=== PATIENT | male | born 1970 | race Hispanic/Latino ===

== ENCOUNTER 2017-11-19 00:42 | Inpatient (IN) | payer MEDICARE ==
[~2017-11-19] VITALS: Ht 180.3 cm; Wt 118.8 kg
[~2017-11-19 00:42] MED LIST: CLARATIN PO; DILT180C11 PO; INSU3INS5 SQ; METO25TA6 PO; TRAV5DRO OP
[2017-11-19] MEDS ORDERED: SODIUM CHLORIDE 0.9% 500ML 500 ML IV ONE (00:55)
[2017-11-19 01:30] LABS: ALBUMIN 3.2 g/dL (3.5-5.0); BILIRUBIN,TOTAL 0.7 mg/dL (0.2-1.0)
[2017-11-19 01:31] LABS: POTASSIUM 7.2 mmol/L (3.5-5.1)
[2017-11-19 01:32] LABS: CREATININE 8.2 mg/dL (0.5-1.5)
[2017-11-19 02:27] LABS: BASOPHILS % (AUTO) 0.5 % (0.0-5.0); EOSINOPHILS % (AUTO) 1.4 % (0.0-8.0); HEMATOCRIT 34.3 % (42-54); LYMPHOCYTES % (AUTO) 6.8 % (21.0-51.0); MEAN CORPUSCULAR HGB CONC 32.4 g/dL (32.0-36.0); MEAN CORPUSCULAR VOLUME 98.9 fL (79-99); MONOCYTES % (AUTO) 4.4 % (3.0-13.0); NEUTROPHILS % (AUTO) 86.9 % (40.0-77.0); NUCLEATED RED BLOOD CELLS 0.2 % (0.0-0.19); PLATELET COUNT (AUTO) 191 K/uL (130-400); RED BLOOD CELL COUNT(AUTO) 3.47 MIL/uL (4.50-6.20); RED CELL DISTRIBUTION WIDTH 17.3 % (11.0-15.5); WHITE BLOOD COUNT (AUTO) 10.3 K/uL (4.8-10.8)
[2017-11-19 02:36] LABS: INR 1.09 (0.85-1.15); PARTIAL THROMBOPLASTIN TIME 22.7 SEC (26.3-35.5); PROTHROMBIN TIME 11.4 SEC (9.6-11.6)
[2017-11-19 02:41] LABS: ALBUMIN 3.1 g/dL (3.5-5.0); BILIRUBIN,TOTAL 0.6 mg/dL (0.2-1.0)
[2017-11-19 02:45] LABS: CREATININE 8.1 mg/dL (0.5-1.5); POTASSIUM 7.1 mmol/L (3.5-5.1)
[2017-11-19] MEDS ORDERED: SODIUM BICARB 50MEQ 50ML VIAL ONE (02:47)
[2017-11-19] MEDS ORDERED: CALCIUM GLUCONATE 1 GM/10 ML VIAL IV ONE (02:47)
[2017-11-19] MEDS ORDERED: SODIUM POLYSTYRENE SULFONATE 15 GM/60 ML ML ONE (02:47)
[2017-11-19] MEDS ORDERED: DEXTROSE 50%-WATER 50 ML DISP.SYRIN IV ONE (02:48)
[2017-11-19] MEDS ORDERED: INSULIN HUMULIN R 100 UNIT/ML 3ML ONE ×3 (02:49→13:07)
[2017-11-19 02:54] LABS: B-TYPE NATRIURETIC PEPTIDE 342 pg/mL (0-100)
[2017-11-19] MEDS ORDERED: ONDANSETRON HCL 4 MG/2 ML VIAL ONE (03:59)
[2017-11-19 07:46] LABS: BASOPHILS % (AUTO) 0.9 % (0.0-5.0); EOSINOPHILS % (AUTO) 0.7 % (0.0-8.0); HEMATOCRIT 31.1 % (42-54); LYMPHOCYTES % (AUTO) 5.4 % (21.0-51.0); MEAN CORPUSCULAR HEMOGLOBIN 31.9 pg (27.0-33.0); MEAN CORPUSCULAR HGB CONC 33.2 g/dL (32.0-36.0); MEAN CORPUSCULAR VOLUME 96.1 fL (79-99); MONOCYTES % (AUTO) 7.7 % (3.0-13.0); NEUTROPHILS % (AUTO) 85.3 % (40.0-77.0); PLATELET COUNT (AUTO) 189 K/uL (130-400); RED BLOOD CELL COUNT(AUTO) 3.24 MIL/uL (4.50-6.20); RED CELL DISTRIBUTION WIDTH 16.8 % (11.0-15.5); WHITE BLOOD COUNT (AUTO) 10.4 K/uL (4.8-10.8)
[2017-11-19 08:21] LABS: POTASSIUM 6.4 mmol/L (3.5-5.1)
[2017-11-19 08:22] LABS: CREATININE 8.8 mg/dL (0.5-1.5)
[2017-11-19] MEDS ORDERED: SODIUM CHLORIDE 0.9% 1000ML 1,000 ML IV ONE (10:59)
[2017-11-19] MEDS ORDERED: MAG HYDROX/AL HYDROX/SIMETH ES 30 ML SUSP UDCUP PO PRN (11:00)
[2017-11-19] MEDS ORDERED: MORPHINE SULFATE 4 MG/1ML SYG IV PRN (11:00)
[2017-11-19] MEDS ORDERED: NITROGLYCERIN 0.4 MG SL TAB SL PRN (11:00)
[2017-11-19] MEDS ORDERED: MORPHINE SULFATE 2 MG/ML 1ML SYG IV PRN (11:00)
[2017-11-19] MEDS ORDERED: HYDRALAZINE HCL 20 MG/ML VIAL IV PRN (11:00)
[2017-11-19] MEDS ORDERED: ONDANSETRON HCL 4 MG/2 ML VIAL IV PRN (11:00)
[2017-11-19] MEDS ORDERED: ACETAMINOPHEN 325 MG TAB PO PRN ×2 (11:00)
[2017-11-19] MEDS ORDERED: GUAIFENESIN-DM 200/20 MG 10 ML PO PRN (11:00)
[2017-11-19] MEDS ORDERED: ACETAMINOPHEN-CODEINE 300/30MG TAB PO PRN ×2 (11:00)
[2017-11-19] MEDS ORDERED: LACTULOSE 20 GM/30 ML UDCUP PO PRN (11:00)
[2017-11-19] MEDS ORDERED: METOPROLOL TARTRATE 25 MG TAB ONE (12:06)
[2017-11-19] MEDS ORDERED: DILTIAZEM HCL 5 MG/ML 10 ML VIAL IV ONE (12:30)
[2017-11-19] MEDS ORDERED: DILTIAZEM HCL 120 MG CAP.SR.24H PO ONE (13:06)
[2017-11-19] MEDS ORDERED: METOPROLOL TARTRATE 1 MG/ML 5ML VIAL IV ONE ×2 (15:15→22:33)
[2017-11-19] MEDS ORDERED: INSU3INS5 SQ ×2 (17:20→17:21)
[2017-11-19 20:00] VITALS: BP 127/83
[2017-11-19] MEDS ORDERED: DILT240C94 PO (20:43)
[2017-11-19] MEDS ORDERED: METOPROLOL TARTRATE 25 MG TAB PO SCH (21:00)
[2017-11-19] MEDS ORDERED: METOPROLOL TARTRATE 1 MG/ML 5ML VIAL IV SCH (22:30)
[2017-11-19 23:50] VITALS: BP 127/79
[2017-11-20] VITALS (21 sets, daily range): BP systolic 110–165; BP diastolic 58–112
[2017-11-20] MEDS ORDERED: METOPROLOL TARTRATE 1 MG/ML 5ML VIAL IV SCH (06:00)
[2017-11-20 06:12] LABS: POTASSIUM 5.3 mmol/L (3.5-5.1)
[2017-11-20 06:16] LABS: CREATININE 9.3 mg/dL (0.5-1.5)
[2017-11-20] MEDS ORDERED: DILTIAZEM HCL 180 MG CAP.SR.24H PO SCH (09:00)
[2017-11-20] MEDS: METOPROLOL TARTRATE 25 MG TAB PO SCH ×2 (09:18→20:36)
[2017-11-20] MEDS: DILTIAZEM HCL 125 MG/25 ML 125 MG in SODIUM CHLORIDE 0.9% 100 ML IV SCH (10:02)
[2017-11-20] MEDS: HEPARIN SODIUM 5000UNIT/ML 1ML VIAL SQ SCH ×2 (10:59→20:37)
[2017-11-20] MEDS ORDERED: SODIUM CHLORIDE 0.9% 1000ML 1,000 ML IV ONE (11:08)
[2017-11-20] MEDS: DILTIAZEM HCL 60 MG TABLET PO SCH ×3 (11:53→23:18)
[2017-11-20] MEDS: INSULIN HUMULIN R 100 UNIT/ML 3ML SQ SCH ×3 (12:02→20:48)
[2017-11-20] MEDS ORDERED: ALBUMIN (HUMAN) 25% 100 ML IV PRN (13:00)
[2017-11-20] MEDS ORDERED: 0.9% SODIUM CHLORIDE 250 ML IV BAG IV PRN (13:00)
[2017-11-20] MEDS ORDERED: SODIUM CHLORIDE 0.9% 1000ML 1,000 ML IV PRN (13:00)
[2017-11-20] MEDS: EPOETIN ALFA 10,000 UNIT/ML VIAL SQ SCH (14:29)
[2017-11-20] MEDS: INSULIN HUMULIN 70/30 100 UNIT/ML 3ML SQ SCH (20:47)
[2017-11-21 03:05] VITALS: BP 118/58
[2017-11-21 04:19] LABS: HEMATOCRIT 33.3 % (42-54); MEAN CORPUSCULAR HEMOGLOBIN 32.3 pg (27.0-33.0); MEAN CORPUSCULAR HGB CONC 33.9 g/dL (32.0-36.0); MEAN CORPUSCULAR VOLUME 95.2 fL (79-99); PLATELET COUNT (AUTO) 236 K/uL (130-400); RED BLOOD CELL COUNT(AUTO) 3.49 MIL/uL (4.50-6.20); RED CELL DISTRIBUTION WIDTH 16.9 % (11.0-15.5); WHITE BLOOD COUNT (AUTO) 11.5 K/uL (4.8-10.8)
[2017-11-21 04:36] LABS: CREATININE 7.8 mg/dL (0.5-1.5); POTASSIUM 4.7 mmol/L (3.5-5.1)
[2017-11-21] MEDS: DILTIAZEM HCL 60 MG TABLET PO SCH ×3 (05:58→17:28)
[2017-11-21] MEDS: INSULIN HUMULIN R 100 UNIT/ML 3ML SQ SCH ×4 (06:03→21:20)
[2017-11-21 07:00] VITALS: BP 142/77
[2017-11-21] MEDS: METOPROLOL TARTRATE 25 MG TAB PO SCH ×2 (09:12→21:17)
[2017-11-21] MEDS: HEPARIN SODIUM 5000UNIT/ML 1ML VIAL SQ SCH ×2 (09:20→21:22)
[2017-11-21] MEDS: INSULIN HUMULIN 70/30 100 UNIT/ML 3ML SQ SCH ×2 (09:21→21:21)
[2017-11-21 11:44] VITALS: BP 173/93
[2017-11-21] MEDS ORDERED: DILTIAZEM HCL 5 MG/ML 5 ML VIAL IVP ONE (13:30)
[2017-11-21] MEDS: DILTIAZEM HCL 125 MG/25 ML 125 MG in SODIUM CHLORIDE 0.9% 100 ML IV SCH (14:25)
[2017-11-21] MEDS: EPOETIN ALFA 10,000 UNIT/ML VIAL SQ SCH (15:00)
[2017-11-21 16:00] VITALS: BP 137/86
[2017-11-21 19:34] VITALS: BP 116/60
[2017-11-21 23:41] VITALS: BP 130/59
[2017-11-22] MEDS: DILTIAZEM HCL 60 MG TABLET PO SCH ×3 (00:33→11:32)
[2017-11-22 03:35] VITALS: BP 129/72
[2017-11-22 04:02] LABS: POTASSIUM 4.7 mmol/L (3.5-5.1)
[2017-11-22 04:07] LABS: CREATININE 10.3 mg/dL (0.5-1.5)
[2017-11-22] MEDS: INSULIN HUMULIN R 100 UNIT/ML 3ML SQ SCH ×4 (06:06→20:59)
[2017-11-22 07:00] VITALS: BP 166/82
[2017-11-22] MEDS: INSULIN HUMULIN 70/30 100 UNIT/ML 3ML SQ SCH ×2 (07:19→20:58)
[2017-11-22] MEDS: METOPROLOL TARTRATE 25 MG TAB PO SCH ×2 (09:50→20:55)
[2017-11-22] MEDS: HEPARIN SODIUM 5000UNIT/ML 1ML VIAL SQ SCH ×2 (09:52→20:57)
[2017-11-22 11:00] VITALS: BP 119/66
[2017-11-22] MEDS ORDERED: PHARMACY COMMUNICATION MISC SCH (12:00)
[2017-11-22] MEDS: EPOETIN ALFA 10,000 UNIT/ML VIAL SQ SCH (12:47)
[2017-11-22] MEDS ORDERED: DILTIAZEM HCL 120 MG CAP.SR.24H PO SCH (13:00)
[2017-11-22 16:00] VITALS: BP 114/63
[2017-11-22 19:25] VITALS: BP 117/64
[2017-11-22 23:43] VITALS: BP 138/71
[2017-11-23 03:37] VITALS: BP 122/68
[2017-11-23 04:58] LABS: POTASSIUM 5.2 mmol/L (3.5-5.1)
[2017-11-23 05:04] LABS: CREATININE 8.7 mg/dL (0.5-1.5)
[2017-11-23] MEDS: INSULIN HUMULIN R 100 UNIT/ML 3ML SQ SCH ×2 (05:48→11:31)
[2017-11-23] MEDS: INSULIN HUMULIN 70/30 100 UNIT/ML 3ML SQ SCH (06:10)
[2017-11-23 07:00] VITALS: BP 141/73
[2017-11-23] MEDS ORDERED: DILTIAZEM HCL 120 MG CAP.SR.24H PO SCH (09:00)
[2017-11-23] MEDS: METOPROLOL TARTRATE 25 MG TAB PO SCH (09:38)
[2017-11-23] MEDS: HEPARIN SODIUM 5000UNIT/ML 1ML VIAL SQ SCH (09:38)
[2017-11-23 11:00] VITALS: BP 134/76
== END 2017-11-23 13:25 | disposition home or self-care (01) | DRG 308 ==
LOC: EDH 00:42 → EDHIP 03:30 → OBSVTOIN 03:30 → 3BH 19:54 → 2CH 11-20 09:42
PROVIDERS: ADMIT Internal Medicine; ATTEND Internal Medicine
PROC: 5A1D70Z Performance of Urinary Filtration, Intermittent, Less than 6 Hours Per Day (ICD-10-PCS; principal; 2017-11-19)
PROC: 5A1D70Z Performance of Urinary Filtration, Intermittent, Less than 6 Hours Per Day (ICD-10-PCS; 2017-11-20)
PROC: 5A1D70Z Performance of Urinary Filtration, Intermittent, Less than 6 Hours Per Day (ICD-10-PCS; 2017-11-22)
DX: I48.91 Unspecified atrial fibrillation (principal); N18.6 End stage renal disease; E11.22 Type 2 diabetes mellitus with diabetic chronic kidney disease; E11.51 Type 2 diabetes mellitus with diabetic peripheral angiopathy without gangrene; I12.0 Hypertensive chronic kidney disease with stage 5 chronic kidney disease or end stage renal disease; E87.5 Hyperkalemia; E11.65 Type 2 diabetes mellitus with hyperglycemia; I48.92 Unspecified atrial flutter; D64.9 Anemia, unspecified; E78.5 Hyperlipidemia, unspecified; E87.70 Fluid overload, unspecified; H54.7 Unspecified visual loss; Z88.8 Allergy status to other drugs, medicaments and biological substances; Z90.49 Acquired absence of other specified parts of digestive tract; Z99.2 Dependence on renal dialysis; Z83.3 Family history of diabetes mellitus; Z82.49 Family history of ischemic heart disease and other diseases of the circulatory system
CPT/HCPCS: 36415; 71045; 80048; 80053; 82948; 83880; 84484; 85025; 85027; 85610; 85730; 90935; 93005; 94640; 99291; G0378; J0360; J0610; J0885; J1644; J1815; J2405; J3490; J7030; J7040; J7070

== ENCOUNTER 2020-03-23 18:05 | Inpatient (IN) | payer MEDICARE ==
[~2020-03-23] VITALS: Ht 175.3 cm; Wt 115.1 kg
[~2020-03-23 18:05] MED LIST changes: -DILT180C11 PO; +GUAI-904 PO; +LEVO500T2 PO; +METO-391 PO; -METO25TA6 PO; +TIMO5DRO27 OS; -TRAV5DRO OP
[2020-03-23 19:18] LABS: BASOPHILS % (AUTO) 0.2 % (0.0-5.0); HEMATOCRIT 28.4 % (42-54); LYMPHOCYTES % (AUTO) 7.5 % (21.0-51.0); MEAN CORPUSCULAR HEMOGLOBIN 30.2 pg (27.0-33.0); MEAN CORPUSCULAR HGB CONC 32.7 g/dL (32.0-36.0); MEAN CORPUSCULAR VOLUME 92.2 fL (79-99); MONOCYTES % (AUTO) 5.9 % (3.0-13.0); NEUTROPHILS % (AUTO) 85.9 % (40.0-77.0); PLATELET COUNT (AUTO) 140 K/uL (130-400); RED BLOOD CELL COUNT(AUTO) 3.08 MIL/uL (4.50-6.20); RED CELL DISTRIBUTION WIDTH 15.7 % (11.0-15.5); WHITE BLOOD COUNT (AUTO) 6.1 K/uL (4.8-10.8)
[2020-03-23] MEDS ORDERED: CEFTRIAXONE SODIUM 500 MG VIAL ONE (19:31)
[2020-03-23] MEDS ORDERED: ACETAMINOPHEN EXTRA STRENGTH 500 MG TABLET ONE (19:32)
[2020-03-23] MEDS ORDERED: AZITHROMYCIN 250 MG TABLET PO ONE (19:32)
[2020-03-23 19:39] LABS: CREATININE 6.1 mg/dL (0.5-1.5); POTASSIUM 4.5 mmol/L (3.5-5.1)
[2020-03-23 19:46] LABS: ALBUMIN 2.6 g/dL (3.5-5.0); BILIRUBIN,TOTAL 2.1 mg/dL (0.2-1.0)
[2020-03-23 19:58] LABS: TOTAL PROTEIN, SERUM 8.6 g/dL (6.0-8.3)
[2020-03-23] MEDS ORDERED: HYDROXYCHLOROQUINE SULFATE 200 MG TAB PO ONE (21:00)
[2020-03-23] MEDS ORDERED: ONDANSETRON HCL 4 MG/2 ML VIAL IV PRN (21:15)
[2020-03-23] MEDS ORDERED: GLUCAGON 1MG KIT 1 MG ML IM PRN (21:30)
[2020-03-23] MEDS: ZOSYN 3.375GM+NS 50ML 50 ML IV SCH (21:30)
[2020-03-23] MEDS ORDERED: DEXTROSE 50%-WATER 50 ML DISP.SYRIN IV PRN (21:30)
[2020-03-23] MEDS ORDERED: VANCOMYCIN PROTOCOL PER PHARMACY IV SCH (21:30)
[2020-03-23] MEDS ORDERED: HYDRALAZINE HCL 20 MG/ML VIAL IV PRN (22:00)
[2020-03-23] MEDS ORDERED: VANCOMYCIN 1GM+NS 250ML 500 ML IV ONE (22:10)
[2020-03-23] MEDS ORDERED: HYDRALAZINE HCL 20 MG/ML VIAL ONE (22:12)
[2020-03-24] VITALS (7 sets, daily range): BP systolic 115–187; BP diastolic 51–101
[2020-03-24 04:27] LABS: BASOPHILS % (AUTO) 0.2 % (0.0-5.0); EOSINOPHILS % (AUTO) 0.2 % (0.0-8.0); HEMATOCRIT 28.7 % (42-54); LYMPHOCYTES % (AUTO) 8.1 % (21.0-51.0); MEAN CORPUSCULAR HGB CONC 32.4 g/dL (32.0-36.0); MEAN CORPUSCULAR VOLUME 92.6 fL (79-99); MONOCYTES % (AUTO) 5.2 % (3.0-13.0); NEUTROPHILS % (AUTO) 85.7 % (40.0-77.0); PLATELET COUNT (AUTO) 129 K/uL (130-400); RED CELL DISTRIBUTION WIDTH 15.4 % (11.0-15.5); WHITE BLOOD COUNT (AUTO) 4.8 K/uL (4.8-10.8)
[2020-03-24] MEDS ORDERED: BACL5TAB PO (04:52)
[2020-03-24] MEDS ORDERED: CETI10TA57 PO (04:52)
[2020-03-24] MEDS ORDERED: MONT10TA26 PO (04:52)
[2020-03-24] MEDS ORDERED: CLON0.1T2 PO (04:52)
[2020-03-24] MEDS ORDERED: FOLI1TAB85 PO (04:52)
[2020-03-24 05:01] LABS: ALBUMIN 2.4 g/dL (3.5-5.0); BILIRUBIN,DIRECT 1.4 mg/dL (0.0-0.3); BILIRUBIN,TOTAL 2.1 mg/dL (0.2-1.0); CREATININE 6.4 mg/dL (0.5-1.5); POTASSIUM 4.4 mmol/L (3.5-5.1); TOTAL PROTEIN, SERUM 8.4 g/dL (6.0-8.3); TROPONIN I 0.06 ng/mL (0.00-0.06)
[2020-03-24 05:32] LABS: CRP QUANTITATIVE 180.8 mg/L (0.00-9.0)
[2020-03-24 05:56] LABS: HEMOGLOBIN A1C 8.9 % (4.0-6.0)
[2020-03-24] MEDS: ZOSYN 3.375GM+NS 50ML 50 ML IV SCH ×2 (07:00→13:11)
[2020-03-24] MEDS: INSULIN HUMULIN R 100 UNIT/ML 3ML SQ SCH ×4 (07:00→21:05)
[2020-03-24 08:25] LABS: ABG BASE EXCESS 1.4 mmol/L (-2.0-3.0); ABG HCO3 24.5 mmol/L (21.0-28.0); ABG OXYGEN SATURATION 95.2 % (95.0-99.0); ABG PCO2 34 mmHg (35-48)
[2020-03-24] MEDS ORDERED: HYDROXYCHLOROQUINE SULFATE 200 MG TAB PO SCH (09:00)
[2020-03-24] MEDS ORDERED: VANCOMYCIN 1GM+NS 250ML 250 ML IV SCH (09:00)
[2020-03-24] MEDS: ASCORBIC ACID 500 MG TAB PO SCH (09:17)
[2020-03-24] MEDS: ZINC SULFATE 220 CAPSULE PO SCH (09:17)
[2020-03-24] MEDS: FAMOTIDINE/PF 20 MG/2 ML VIAL IV SCH (09:17)
[2020-03-24] MEDS ORDERED: DiphenhydrAMINE HCL 50 MG/ML VIAL IV SCH (10:15)
[2020-03-24] MEDS ORDERED: DiphenhydrAMINE HCL 50 MG/ML VIAL ONE (10:20)
--- NOTE | 2020-03-24 13:18 | NUR ---
UZMA PLAN PATIENT IN COVID UNIT ISOLATION POSITVE ON 03/24. NOT ABLE TO ENTER UNIT. NO ANSWER ON ROOM PHONE. GIVING TIME FOR INFECTION AND COUNTY TO LET FAMILY KNOW. CM WILL CONTINUE TO FOLLOW. Addendum: 03/24/20 at 1320 by KORIN KIM RN CM Amended: Links added.
--- NOTE | 2020-03-24 13:42 | NUR ---
DR. Gela DALY IN ROOM WITH PT. FOR CONSULT. PT.'S SPOUSE AT BEDSIDE.
[2020-03-24] MEDS ORDERED: GUAIFENESIN 600 MG TABLET.ER PO PRN (13:45)
[2020-03-24] MEDS ORDERED: REMDESIVIR (INVESTIGATIONAL) 200 MG in SODIUM CHLORIDE 0.9% 250 ML IV ONE (15:45)
[2020-03-24] MEDS ORDERED: LOSARTAN 50 MG TABLET PO PRN (15:45)
[2020-03-24] MEDS: METHYLPREDNISOLONE SOD SUCC 40MG/ML 1ML IVP SCH (16:07)
[2020-03-24] MEDS: METOPROLOL SUCCINATE 50 MG TAB.SR.24H PO SCH (16:08)
[2020-03-24] MEDS ORDERED: ACETAMINOPHEN 325 MG TAB ONE (16:12)
[2020-03-24] MEDS ORDERED: ENOXAPARIN SODIUM 120 MG/0.8ML SQ SCH (17:00)
[2020-03-24] MEDS ORDERED: ACETAMINOPHEN 325 MG TAB PO ONE (17:30)
[2020-03-24] MEDS: MINOXIDIL 2.5 MG TAB PO SCH (20:32)
[2020-03-25] MEDS ORDERED: LOPERAMIDE HCL 2 MG CAP PO ONE (01:15)
[2020-03-25] MEDS ORDERED: HYDROXYZINE HCL 25 MG TABLET ONE (01:16)
[2020-03-25] MEDS ORDERED: SODIUM CHLORIDE 0.9% 250 ML IV ONE (01:16)
[2020-03-25] MEDS: ZOSYN 3.375GM+NS 50ML 50 ML IV SCH ×2 (01:19→13:34)
[2020-03-25] MEDS: HYDROXYZINE HCL 25 MG TABLET PO STA ×2 (01:21→02:13)
[2020-03-25] MEDS: LOPERAMIDE HCL 2 MG CAP PO PRN (01:44)
--- NOTE | 2020-03-25 02:43 | NUR ---
Epistaxis Patient had several episodes of nose bleed. Minimal bleeding noted. Pressure applied to the anterior septal area. Patient stated has hx of nose bleeds but hasn't had one in a long time. Unable to recall date of last episode. Orders received from hospitalist and carried out. Patient stable, alert, coherent, follows commands, call light within reach.
[2020-03-25 03:12] VITALS: BP 132/87
[2020-03-25] MEDS: METHYLPREDNISOLONE SOD SUCC 40MG/ML 1ML IVP SCH ×2 (04:16→20:00)
[2020-03-25 05:16] LABS: BASOPHILS % (AUTO) 0.2 % (0.0-5.0); HEMATOCRIT 31.3 % (42-54); LYMPHOCYTES % (AUTO) 5.6 % (21.0-51.0); MEAN CORPUSCULAR HEMOGLOBIN 29.9 pg (27.0-33.0); MEAN CORPUSCULAR HGB CONC 32.3 g/dL (32.0-36.0); MEAN CORPUSCULAR VOLUME 92.6 fL (79-99); MONOCYTES % (AUTO) 3.2 % (3.0-13.0); NEUTROPHILS % (AUTO) 90.3 % (40.0-77.0); PLATELET COUNT (AUTO) 155 K/uL (130-400); RED BLOOD CELL COUNT(AUTO) 3.38 MIL/uL (4.50-6.20); RED CELL DISTRIBUTION WIDTH 15.6 % (11.0-15.5); WHITE BLOOD COUNT (AUTO) 4.4 K/uL (4.8-10.8)
[2020-03-25 05:31] LABS: INR 1.16 (0.85-1.15); PARTIAL THROMBOPLASTIN TIME 38.6 SEC (26.3-35.5); PROTHROMBIN TIME 12.5 SEC (9.6-11.6)
[2020-03-25 05:53] LABS: CRP QUANTITATIVE 253.5 mg/L (0.00-9.0)
[2020-03-25] MEDS: INSULIN HUMULIN R 100 UNIT/ML 3ML SQ SCH ×4 (06:07→20:20)
[2020-03-25 08:00] VITALS: BP 122/82
[2020-03-25] MEDS: ASCORBIC ACID 500 MG TAB PO SCH (09:00)
[2020-03-25] MEDS ORDERED: METOPROLOL SUCCINATE 50 MG TAB.SR.24H PO SCH (09:00)
[2020-03-25] MEDS: FAMOTIDINE/PF 20 MG/2 ML VIAL IV SCH (09:00)
[2020-03-25] MEDS: ZINC SULFATE 220 CAPSULE PO SCH (09:00)
--- NOTE | 2020-03-25 09:00 | NUR ---
MEDS PT REFUSED ALL MEDS , STATES TAKES AFTER DIALYSIS
--- NOTE | 2020-03-25 11:44 | NUR ---
UZMA PLAN PATIENT IN COVID POSITIVE UNIT. POSITIVE ON 03/24. CALLED MATILDE AT [facility] SAID THEY NEED 24 HR NOTICE ONCE PATIENT IS GOING TO BE DISCHARGED SO THAT THEY CAN GIVE HIM A CHAIR TIME IN [place]. Addendum: 03/25/20 at 1145 by KORIN KIM RN CM Amended: Links added.
[2020-03-25 12:00] VITALS: BP 135/86
--- NOTE | 2020-03-25 13:15 | NUR ---
NUTRITION EDUCATION RD attempt at Tele-Nutrition secondary to Isolation Protocol - No answer. TRINIDAD placed Diabetes/Dialysis/Fluid Restriction Nutrition handouts in Pt chart. Instructions for nutritional recommendations noted on handouts. RD to follow up. Addendum: 03/25/20 at [address] Amended: Links added.
--- NOTE | 2020-03-25 13:26 | NUR ---
RD NOTIFICATION - TRIGGER, NUTR EDUCATION Pt admitted with CAP, Sepsis, Fluid Overload. History of DM, ESRD, HTN, Retinopathy, Neuropathy. RD attempt to reach Pt by phone d/t isolation protocol with no answer. RN reports Pt is tolerating Diet order and eating well at 75% intake. No report of GI distress. Noted, BLE 3+ edema. Altered renal labs;Hemodialysis in place. Pt with morbid obesity and other comorbidities. Recommend continue current diet order and fluid restriction RD to follow up for Nutrition education. RD to continue to monitor. Please notify as additional nutrition concerns arise. Thank you. Addendum: 03/25/20 at [address] Amended: Links added.
[2020-03-25] MEDS ORDERED: REMDESIVIR (INVESTIGATIONAL) 100 MG in SODIUM CHLORIDE 0.9% 250 ML IV SCH (15:45)
[2020-03-25 16:00] VITALS: BP 142/91
[2020-03-25 20:00] VITALS: BP 116/64
[2020-03-25] MEDS: METOPROLOL SUCCINATE 50 MG TAB.SR.24H PO SCH (20:00)
[2020-03-26] VITALS: BP 141/87
--- NOTE | 2020-03-26 00:15 | NUR ---
paged PRIVATE BRANCH EXCHANGE INSTALLER director talent acquisition for pts HR sustaining in the 140's- 150 afib. awaiting call back, pt is stable, no complains of being in distress or in any forms of pain. will monitor
--- NOTE | 2020-03-26 00:31 | NUR ---
AALIYAH Zayas called back, informed abour pts HR in the 150's, ordered cmp and mag stat. will ff up results
[2020-03-26] MEDS: ZOSYN 3.375GM+NS 50ML 50 ML IV SCH ×2 (01:25→13:17)
[2020-03-26 01:42] LABS: CREATININE 5.7 mg/dL (0.5-1.5); POTASSIUM 4.8 mmol/L (3.5-5.1)
[2020-03-26 01:46] LABS: ALBUMIN 2.3 g/dL (3.5-5.0); BILIRUBIN,TOTAL 1.6 mg/dL (0.2-1.0); MAGNESIUM 2.4 mg/dL (1.80-2.40); TOTAL PROTEIN, SERUM 8.2 g/dL (6.0-8.3)
[2020-03-26 04:00] VITALS: BP 129/78
[2020-03-26] MEDS: METHYLPREDNISOLONE SOD SUCC 40MG/ML 1ML IVP SCH ×2 (04:01→16:45)
[2020-03-26] MEDS: INSULIN HUMULIN R 100 UNIT/ML 3ML SQ SCH ×4 (06:09→22:28)
[2020-03-26 07:30] VITALS: BP 145/90
[2020-03-26] MEDS: ZINC SULFATE 220 CAPSULE PO SCH (08:21)
[2020-03-26] MEDS: METOPROLOL SUCCINATE 50 MG TAB.SR.24H PO SCH ×2 (08:22→22:00)
[2020-03-26] MEDS: FAMOTIDINE/PF 20 MG/2 ML VIAL IV SCH (08:22)
[2020-03-26] MEDS: ASCORBIC ACID 500 MG TAB PO SCH (08:22)
[2020-03-26] MEDS: MINOXIDIL 2.5 MG TAB PO SCH ×3 (09:00→22:01)
[2020-03-26] MEDS ORDERED: ENOXAPARIN SODIUM 120 MG/0.8ML SQ SCH (09:00)
[2020-03-26 11:30] VITALS: BP 166/99
[2020-03-26] MEDS ORDERED: METOPROLOL TARTRATE 1 MG/ML 5ML VIAL IV STA (13:13)
[2020-03-26 15:30] VITALS: BP 138/83
[2020-03-26] MEDS ORDERED: INSULIN HUMULIN R 100 UNIT/ML 3ML ONE (17:45)
[2020-03-26] MEDS ORDERED: LOSARTAN 50 MG TABLET PO PRN (17:45)
[2020-03-26] MEDS ORDERED: DOCUSATE SODIUM 100 MG CAP PO PRN (18:45)
[2020-03-26 20:15] VITALS: BP 136/73
--- NOTE | 2020-03-26 20:15 | NUR ---
ASSESSMENT PT RESTING QUIETLY IN ROOM WATCHING TV. CURRENTLY DENIES ANY PAIN OR DISCOMFORT. AAOX4 PLEASANT, COOPERATIVE AND FOLLOWS COMMANDS. DENIES ANY CHEST PAIN OR S.O.B. PT ENCOURAGED TO KEEP O2 2L NC IN PLACE BUT CONTINUES TO CONSTANT EXPLAINING. ASSESSMENT COMPLETED, SEE FLOW SHEET.
[2020-03-26] MEDS ORDERED: INSULIN HUMULIN R 100 UNIT/ML 3ML SQ SCH (21:00)
[2020-03-26] MEDS: INSULIN GLARGINE 100 UNITS/ML 10 ML VIAL SQ SCH (22:30)
[2020-03-27] VITALS (7 sets, daily range): BP systolic 128–142; BP diastolic 71–86
[2020-03-27] MEDS: ZOSYN 3.375GM+NS 50ML 50 ML IV SCH ×2 (01:56→11:45)
[2020-03-27] MEDS: METHYLPREDNISOLONE SOD SUCC 40MG/ML 1ML IVP SCH ×2 (05:26→16:01)
[2020-03-27 05:58] LABS: CRP QUANTITATIVE 119.5 mg/L (0.00-9.0)
[2020-03-27] MEDS: INSULIN HUMULIN R 100 UNIT/ML 3ML SQ SCH ×4 (06:40→20:52)
[2020-03-27] MEDS ORDERED: IOHEXOL 350 MG/ML 100ML INFUS..BTL IV ONE (06:58)
--- NOTE | 2020-03-27 07:30 | NUR ---
TO RADIOLOGY FOR CT SCAN VS STABLE, PT IN NO DISTRESS
--- NOTE | 2020-03-27 08:30 | NUR ---
CARDIOLOGY CONSULT, DR PEREIRA WEFT STRAIGHTENER FOR DR RAYMUNDO. PAGED PT IS IN ATRIAL FLUTTER RATE OF 98
[2020-03-27] MEDS ORDERED: LACTULOSE 20 GM/30 ML UDCUP PO SCH (09:00)
[2020-03-27] MEDS: FAMOTIDINE/PF 20 MG/2 ML VIAL IV SCH (09:00)
[2020-03-27] MEDS: ASCORBIC ACID 500 MG TAB PO SCH (09:27)
[2020-03-27] MEDS: MINOXIDIL 2.5 MG TAB PO SCH (09:29)
[2020-03-27] MEDS: ZINC SULFATE 220 CAPSULE PO SCH (09:30)
[2020-03-27] MEDS: METOPROLOL SUCCINATE 50 MG TAB.SR.24H PO SCH ×2 (09:30→20:40)
[2020-03-27] MEDS: APIXABAN 5 MG TABLET PO SCH ×2 (11:31→20:41)
[2020-03-27] MEDS: FAMOTIDINE 20MG TAB 20 MG TAB PO SCH (11:31)
[2020-03-27] MEDS ORDERED: VANCOMYCIN 1GM+NS 250ML 250 ML IV SCH (13:00)
[2020-03-27 13:31] LABS: BASOPHILS % (AUTO) 0.1 % (0.0-5.0); HEMATOCRIT 32.1 % (42-54); MEAN CORPUSCULAR HEMOGLOBIN 30.2 pg (27.0-33.0); MEAN CORPUSCULAR HGB CONC 32.7 g/dL (32.0-36.0); MEAN CORPUSCULAR VOLUME 92.2 fL (79-99); MONOCYTES % (AUTO) 2.8 % (3.0-13.0); NEUTROPHILS % (AUTO) 92.1 % (40.0-77.0); PLATELET COUNT (AUTO) 183 K/uL (130-400); RED BLOOD CELL COUNT(AUTO) 3.48 MIL/uL (4.50-6.20); RED CELL DISTRIBUTION WIDTH 15.5 % (11.0-15.5)
[2020-03-27 13:51] LABS: ALBUMIN 2.2 g/dL (3.5-5.0); BILIRUBIN,TOTAL 1.5 mg/dL (0.2-1.0); CREATININE 7.3 mg/dL (0.5-1.5); POTASSIUM 4.8 mmol/L (3.5-5.1); TOTAL PROTEIN, SERUM 8.1 g/dL (6.0-8.3)
--- NOTE | 2020-03-27 15:00 | NUR ---
PT HAS BEEN WALKING WITH GUIDANCE FROM BED TO BATHROOM, TO CHAIR, TO BATHROOM, TO BED. SITTING UP ALL DAY WITHOUT SHORTNESS OF BREATH
--- NOTE | 2020-03-27 16:25 | NUR ---
INITIAL SW spoke with patient. Patient lives with spouse, Isi Pena, [phone]. He has [facility] that has been coming daily to do treatment on right leg which has blister. PHC is with [facility] in X 27 hours a week. Patient has dialysis at [facility] on // at 9:30am X 4 hours. DME: BPM, glucometer (uses insulin). Patient needs help with ADL and does not drive. 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 Family assists with transportation. PCP is Dr. Adalid Vaughan. Pharmacy is [facility]. DCP is home. Addendum: 03/27/20 at 1628 by MILDRED KAY Amended: Links added.
--- NOTE | 2020-03-27 17:01 | NUR ---
DR PEREIRA HERE TO SEE PT. FLUTTER CONDITION CHRONIC, RATE CONTROLLED
[2020-03-27] MEDS: DILTIAZEM HCL 120 MG CAP.SR.24H PO SCH (18:37)
--- NOTE | 2020-03-27 19:30 | NUR ---
ASSESSMENT PT RESTING QUIETLY IN ROOM LISTENING TO TV. CURRENTLY DENIES ANY PAIN OR DISCOMFORT. AAOX4 PLEASANT, COOPERATIVE AND FOLLOWS COMMANDS. DENIES ANY CHEST PAIN OR S.O.B. PT ENCOURAGED TO KEEP O2 2L NC IN PLACE. ASSESSMENT COMPLETED, SEE FLOW SHEET.
[2020-03-27] MEDS ORDERED: PHARMACY COMMUNICATION MISC ONE (19:45)
[2020-03-27] MEDS: INSULIN GLARGINE 100 UNITS/ML 10 ML VIAL SQ SCH (20:48)
[2020-03-28] MEDS: ZOSYN 3.375GM+NS 50ML 50 ML IV SCH ×2 (03:06→14:58)
[2020-03-28] MEDS: METHYLPREDNISOLONE SOD SUCC 40MG/ML 1ML IVP SCH ×2 (03:07→15:59)
[2020-03-28 03:42] VITALS: BP 112/62
[2020-03-28] MEDS: INSULIN HUMULIN R 100 UNIT/ML 3ML SQ SCH ×4 (06:05→21:00)
--- NOTE | 2020-03-28 06:53 | NUR ---
REPORT REPORT GIVEN TO MARILYN LÓPEZ .
--- NOTE | 2020-03-28 06:54 | NUR ---
REPORT REPORT GIVEN TO ON COMING SHIFT
--- NOTE | 2020-03-28 06:55 | NUR ---
REPORT REPORT GIVEN TO ONCOMING SHIFT.
--- NOTE | 2020-03-28 07:30 | NUR ---
SBAR REPORT FROM DATA ANALYTICS DEVELOPER RN. PT WITH CALL LIGHT AT BEDSIDE. GOT UP FROM THE BED WHILE NURSE TAKING REPORT OUTSIDE ROOM, AND LET OUT A SCREAM, "HELP ME". I ASKED IF WHAT PT NEEDED HELP WITH AND HE SAID HE COULD NOT FIND HIS CELL PHONE. CELL PHONE PLACED AT BEDSIDE. CALL LIGHT WITH IDENTIFIABLE NURSE CALL BUTTON AT BEDSIDE. PT WAS PLACED IN RECLINER WITH ASSISTANCE X 2 DUE UNSTEADY GAIT.
[2020-03-28 08:00] VITALS: BP 141/67
--- NOTE | 2020-03-28 08:00 | NUR ---
VS TAKEN, BELIONGINGS ARE AT BEDSIDE INCLUDING WATER WITH NO ICE.
[2020-03-28 08:28] LABS: PHOSPHORUS 7.7 mg/dL (2.5-4.9)
--- NOTE | 2020-03-28 08:30 | NUR ---
A DAILY ROUTINE, BREAKFAST GIVEN TO PT. EGG WAS CUT UP AND HIS HAND PLACED WITH A FORK SO THAT HE MAY EAT. TOAST BREAD SPREAD WITH JELLY FOR HIM,JUICE X 2 OPENED FOR PT, [place] AT BEDSIDE, NECESSARY ITEMS WITHIN REACH.
[2020-03-28 08:33] LABS: CREATININE 8.3 mg/dL (0.5-1.5)
[2020-03-28] MEDS: METOPROLOL SUCCINATE 50 MG TAB.SR.24H PO SCH ×2 (09:00→21:26)
--- NOTE | 2020-03-28 09:00 | NUR ---
MEDS GIVEN TO PT ONE BY ONE. PT WILL NOT TAKE MORE THAN ONE PILL AT A TIME. AND REQUIRED 2 CUPS OF WATER INTAKE FOR MEDS.
[2020-03-28] MEDS: FAMOTIDINE 20MG TAB 20 MG TAB PO SCH (09:08)
[2020-03-28] MEDS: APIXABAN 5 MG TABLET PO SCH ×2 (09:08→21:26)
[2020-03-28] MEDS: ZINC SULFATE 220 CAPSULE PO SCH (09:08)
[2020-03-28] MEDS: ASCORBIC ACID 500 MG TAB PO SCH (09:09)
[2020-03-28] MEDS: DILTIAZEM HCL 120 MG CAP.SR.24H PO SCH (09:09)
--- NOTE | 2020-03-28 09:30 | NUR ---
PT GUIDED OUT OF CHAIR TO RESTROOM. NURSE WAITED AND CLEANED PT WHEN DONE. AND TOOK TO PEOPLE TO HELP LIFT PT UP OFF TOILET SO THAT HE MAY BE GUIDED TO BED. INTRUCTED TO ELEVATE HIS LEGS TO REDUCE SWELLING. BACK TO BED WITH ELEVATED LEGS. PT WITH COUGH
[2020-03-28] MEDS: GUAIFENESIN-DM 200/20 MG 10 ML PO PRN ×3 (09:34→17:00)
--- NOTE | 2020-03-28 09:35 | NUR ---
NURSE PRACTITIONER IN TO SEE PT. RECEIVED ORDER FOR RAUL. PT HAS BEEN COUGHING IN CLOSE PROXIMITY TO STAFF SAYING " ITS OK, I DONT HAVE THE VIRUS ANYMORE"
--- NOTE | 2020-03-28 10:00 | NUR ---
PT CALLED TO BE TRANSFERRED FROM BED TO CHAIR X 2 ASSISTANTS. DOES NOT TOLERATE WITH HIS LEGS UP.
--- NOTE | 2020-03-28 10:30 | NUR ---
PT CALLED FOR MORE TISSUE PAPER FOR HIS COUGH AND NOSE CONGESTION
--- NOTE | 2020-03-28 11:00 | NUR ---
VS TAKEN. CALL LIGHT WITHIN REACH. ITEMS WITHIN REACH
[2020-03-28 11:02] VITALS: BP 128/61
--- NOTE | 2020-03-28 11:30 | NUR ---
INSULIN GIVEN FOR GLUCOSE 203, NEEDED ITEMS WITHIN REACH
--- NOTE | 2020-03-28 12:00 | NUR ---
A DAILY ROUTINE. LUNCH OPENED FOR PT. FOOD CUT UP INTO PIECES. FORK PLACED IN HAND ON FOOD. ITEMS WITHIN REACH.
--- NOTE | 2020-03-28 12:45 | NUR ---
PT CALLED, TO LET US KNOW HE HAS FINISHED HIS LUNCH.
--- NOTE | 2020-03-28 13:00 | NUR ---
PT HELPED WITH MOUTH HYGINE. WAS ABLE TO BRUSH HIS OWN TEETH WHILE NURSE ASSISTED PT WITH WATER RINSES.
--- NOTE | 2020-03-28 13:20 | NUR ---
LON GIVEN FOR COUGH. PT STILL WITH COUGHING PRODUCTIVELY IN PROXIMITY TO EMPLOYEES.GAVE PT A MASK AND ASKED HIM TO COUGH INTO THE MASK AND REMOVE WHEN DONE IF PT DOESENT WANT TO WEAR IT.
--- NOTE | 2020-03-28 14:00 | NUR ---
PT HELPED UP OUT OF CHAIR WITH ASSIST X 2 TO RESTROOOM. EMPLOYEES WAITED FOR PT TO FINISH AND PT WAS HELPED BACK INTO BED WITH HIS HEAD OF BED UP.
--- NOTE | 2020-03-28 14:25 | NUR ---
DR DALY IN TO SEE PT. PT WAS GIVEN PHONE TO FOR QUESTIONS ABOUT HIS CONDITION.
--- NOTE | 2020-03-28 15:00 | NUR ---
IV FLUSHED, SOZYN STARTED. PT'S BELONGINGS WITHIN REACH
--- NOTE | 2020-03-28 15:17 | NUR ---
DC PLAN RECEIVED ORDER FOR SNF. SPOKE TO NURSE SAID THAT PATIENT IS COUGHING A LOT. STILL HAVING SOB ON O2 AT 2L AND TEMP IS 97.2. PATIENT DOES NOT MEET DISCHARGE SCREENS FOR TRANSFER TO FACILITY FOR POSITIVE COVID PATIENT. CM WILL CONTINUE TO FOLLOW. Addendum: 03/28/20 at 1520 by KORIN KIM RN CM Amended: Links added.
--- NOTE | 2020-03-28 15:30 | NUR ---
PT COMPLAINING OF PAIN. TO SHOULDER. PRIMARY MD PAGED FOR PAIN MED.
--- NOTE | 2020-03-28 16:00 | NUR ---
PHYSICAL THERAPY IN TO SEE PT. THERAPIST GAVE PT A MASSAGE TO HIS SHOULDERS AND ASSESSED HIS GAIT. PLACED PT IN RECLINER.
[2020-03-28] MEDS ORDERED: CALC500T13 PO (16:21)
[2020-03-28 16:30] VITALS: BP 118/62
[2020-03-28] MEDS ORDERED: DiphenhydrAMINE HCL 50 MG/ML VIAL IV SCH (16:30)
--- NOTE | 2020-03-28 16:30 | NUR ---
DR GALVEZ CALLED IN TO TALK TO PATIENT. TRANSFERRED PHONE CALL TO PTS ROOM. PT ANSWERED IN HIS ROOM AND SPOKE TO . ORDERS FOR TUMS AND BENADRYL RECEIVED FROM DR GALVEZ.
[2020-03-28] MEDS ORDERED: DiphenhydrAMINE HCL 50 MG/ML VIAL ONE (16:40)
--- NOTE | 2020-03-28 16:45 | NUR ---
VS TAKEN BELONGINS WITHIN REACH. PT VERY TALKATIVE. AND ACTIVELY COUGHING WITH MASK PLACED BELOW HIS FACE ON HIS NECK
--- NOTE | 2020-03-28 17:00 | NUR ---
IN USUAL MANNER, DINNER ASSISTANCE TO PT.
[2020-03-28] MEDS: CALCIUM CARBON 500MG CHEW TAB PO SCH (17:10)
--- NOTE | 2020-03-28 17:30 | NUR ---
PT PLACED IN BED, CARRYING HIS SWOLLEN LEGS ON BED FOR DIALYSIS TREATMENT. ELEVATED HIS LEGS PER PTS TOLERANCE. AND INSTRUCTED PT TO MOVE HIS FEED DURING DIALYSIS TO INCREASE VENOUS RETURN. PT CONTINUES TO COUGH IN CLOSE PROXIMITY TO EMPLOYEES WITH UNCOVERED MOUTH.
--- NOTE | 2020-03-28 18:00 | NUR ---
PT TOLERATING DIALYSIS, GUAFINISEN GIVEN FOR CONTINUED UNCOVERED COUGH. DIALYSIS NURSE IN ROOM WITH PT AT THIS TIME.
--- NOTE | 2020-03-28 18:36 | NUR ---
DR PEOPLES IN TO SEE PT DURING HIS DIALYSIS
[2020-03-28 20:00] VITALS: BP 144/77
--- NOTE | 2020-03-28 21:00 | NUR ---
DIALYSIS COMPLETED. PT TOLERATED WELL. WEIGHT AFTER DIALYSIS 115.9KG. 3L REMOVED.
[2020-03-28] MEDS: INSULIN GLARGINE 100 UNITS/ML 10 ML VIAL SQ SCH (21:26)
--- NOTE | 2020-03-28 22:00 | NUR ---
BATHROOM ASSISTED PT TO BATHROOM. PT HAD LOOSE BM. AMBULATED BACK TO BED. SITTING ON BED. NO SOB. DENIES PAIN. BED TO LOWEST LEVEL. CALL LIGHT WITHIN REACH.
[2020-03-28 23:57] VITALS: BP 141/74
--- NOTE | 2020-03-29 00:15 | NUR ---
BRIEF SOFT PASTY FORM BM IN BRIEF. PT CLEANED AND NEW BRIEF ON PT. CONTINUES TO LAY IN BED.
[2020-03-29] MEDS: ZOSYN 3.375GM+NS 50ML 50 ML IV SCH ×2 (02:02→14:18)
--- NOTE | 2020-03-29 02:21 | NUR ---
CHAIR ASSISTED PT TO CHAIR. TOLERATED WELL, MOVES SLOWLY. DENIES PAIN. CONTINUES ON OXYGEN 3L. NO SOB NTED.
[2020-03-29 04:09] VITALS: BP 140/67
--- NOTE | 2020-03-29 05:05 | NUR ---
BED ASSISTED PT TO BED FROM RECLINER. PT BECOMES SHORT OF BREATH WITH SHORT DISTANCE AMBULATION. PT CONTINUES TO BE ON 3L VIA NC. BED TO LOWEST LEVEL. CALL LIGHT WITHIN REACH.
[2020-03-29 05:56] LABS: BASOPHILS % (AUTO) 0.1 % (0.0-5.0); HEMATOCRIT 29.9 % (42-54); LYMPHOCYTES % (AUTO) 2.9 % (21.0-51.0); MEAN CORPUSCULAR HEMOGLOBIN 29.7 pg (27.0-33.0); MEAN CORPUSCULAR HGB CONC 32.8 g/dL (32.0-36.0); MEAN CORPUSCULAR VOLUME 90.6 fL (79-99); MONOCYTES % (AUTO) 3.3 % (3.0-13.0); NEUTROPHILS % (AUTO) 92.9 % (40.0-77.0); PLATELET COUNT (AUTO) 205 K/uL (130-400); RED CELL DISTRIBUTION WIDTH 15.3 % (11.0-15.5); WHITE BLOOD COUNT (AUTO) 10.3 K/uL (4.8-10.8)
[2020-03-29 06:14] LABS: CREATININE 6.5 mg/dL (0.5-1.5); POTASSIUM 4.1 mmol/L (3.5-5.1)
--- NOTE | 2020-03-29 06:50 | NUR ---
PT WEIGHT TAKEN AT THIS TIME. ITEMS WITHIN REACH
[2020-03-29] MEDS: INSULIN HUMULIN R 100 UNIT/ML 3ML SQ SCH ×4 (07:02→21:00)
--- NOTE | 2020-03-29 07:15 | NUR ---
DR JOHNSON IN TO SEE PT. PT CALLED IN TO ROOM SEE IF HE NEEDED ANYTHING BEFORE ENTERING ROOM. PT ABLE TO ANSWER PHONE. CELL PHONE AND OTHER ITEMS WITHIN REACH
[2020-03-29] MEDS ORDERED: GUAIFENESIN-CODEINE 5 ML SYRUP PO PRN (08:00)
--- NOTE | 2020-03-29 08:00 | NUR ---
GAVE BREAKFAST TRAY TO PT, ARRANGED THINGS WITHIN REACH.
[2020-03-29] MEDS: GUAIFENESIN-DM 200/20 MG 10 ML PO PRN (08:27)
[2020-03-29] MEDS: APIXABAN 5 MG TABLET PO SCH ×2 (08:27→20:53)
[2020-03-29] MEDS: METOPROLOL SUCCINATE 50 MG TAB.SR.24H PO SCH ×2 (08:28→20:53)
[2020-03-29] MEDS: DILTIAZEM HCL 120 MG CAP.SR.24H PO SCH (08:28)
[2020-03-29] MEDS: CALCIUM CARBON 500MG CHEW TAB PO SCH ×3 (08:28→17:09)
[2020-03-29] MEDS: FAMOTIDINE 20MG TAB 20 MG TAB PO SCH (08:28)
[2020-03-29] MEDS: LOPERAMIDE HCL 2 MG CAP PO PRN (08:28)
[2020-03-29] MEDS: ZINC SULFATE 220 CAPSULE PO SCH (08:29)
[2020-03-29] MEDS: PREDNISONE 20 MG TABLET PO SCH ×2 (08:29→20:53)
[2020-03-29] MEDS: ASCORBIC ACID 500 MG TAB PO SCH (08:29)
[2020-03-29 08:37] VITALS: BP 129/58
--- NOTE | 2020-03-29 08:50 | NUR ---
MEDS GIVEN ONE BY ONE, REINFORCED TO PT THAT HE CAN ONLY HAVE 1LITER OF FLUIDS IN 24 HRS,
--- NOTE | 2020-03-29 08:52 | NUR ---
PT CALLED FOR CHANNEL ON TV TO BE CHANGED AT THIS TIME
[2020-03-29 09:11] LABS: HEPATITIS A ANTIBODY IGM Negative (Negative); HEPATITIS B CORE IGM Negative (Negative); HEPATITIS Bs ANTIGEN SCREEN P Negative (Negative)
[2020-03-29 11:17] VITALS: BP 149/88
[2020-03-29 15:02] VITALS: BP 128/64
[2020-03-29 19:39] VITALS: BP 136/70
[2020-03-29] MEDS: INSULIN GLARGINE 100 UNITS/ML 10 ML VIAL SQ SCH (21:01)
[2020-03-29 23:52] VITALS: BP 137/70
[2020-03-30 03:13] VITALS: BP 144/76
[2020-03-30] MEDS: ZOSYN 3.375GM+NS 50ML 50 ML IV SCH ×2 (04:00→14:59)
[2020-03-30 04:10] LABS: BASOPHILS % (AUTO) 0.1 % (0.0-5.0); HEMATOCRIT 31.8 % (42-54); LYMPHOCYTES % (AUTO) 3.2 % (21.0-51.0); MEAN CORPUSCULAR HEMOGLOBIN 30.4 pg (27.0-33.0); MEAN CORPUSCULAR HGB CONC 33.3 g/dL (32.0-36.0); MEAN CORPUSCULAR VOLUME 91.1 fL (79-99); MONOCYTES % (AUTO) 4.4 % (3.0-13.0); NEUTROPHILS % (AUTO) 91.3 % (40.0-77.0); PLATELET COUNT (AUTO) 243 K/uL (130-400); RED BLOOD CELL COUNT(AUTO) 3.49 MIL/uL (4.50-6.20); RED CELL DISTRIBUTION WIDTH 15.1 % (11.0-15.5); WHITE BLOOD COUNT (AUTO) 11.4 K/uL (4.8-10.8)
[2020-03-30 04:35] LABS: CREATININE 7.8 mg/dL (0.5-1.5); POTASSIUM 4.8 mmol/L (3.5-5.1)
[2020-03-30 04:40] LABS: CRP QUANTITATIVE 51.9 mg/L (0.00-9.0)
[2020-03-30 05:17] LABS: ERYTHROCYTE SEDIMENTATION RATE 117 MM/HR (0-20)
[2020-03-30] MEDS: INSULIN HUMULIN R 100 UNIT/ML 3ML SQ SCH ×3 (06:08→16:49)
[2020-03-30] MEDS: FAMOTIDINE 20MG TAB 20 MG TAB PO SCH (07:23)
[2020-03-30] MEDS: ZINC SULFATE 220 CAPSULE PO SCH (07:23)
[2020-03-30] MEDS: METOPROLOL SUCCINATE 50 MG TAB.SR.24H PO SCH ×2 (07:23→19:59)
[2020-03-30] MEDS: CALCIUM CARBON 500MG CHEW TAB PO SCH ×3 (07:23→16:33)
[2020-03-30] MEDS: DILTIAZEM HCL 120 MG CAP.SR.24H PO SCH (07:23)
[2020-03-30] MEDS: PREDNISONE 20 MG TABLET PO SCH ×2 (07:23→19:59)
[2020-03-30] MEDS: APIXABAN 5 MG TABLET PO SCH (07:23)
[2020-03-30] MEDS: ASCORBIC ACID 500 MG TAB PO SCH (07:23)
--- NOTE | 2020-03-30 08:00 | NUR ---
ENCOUNTERED PATIENT SITTING ON THE RECLINER WITH NO C/O PAIN NOR SOB. HE IS ON 3L O2 PER N/C. BILATERAL LOWER EXTREMITY SWELLING NOTED. FULL ASSESSMENT DONE. MAINTAINED ENHANCED PRECAUTIONS FOR POSITIVE COVID-19. PATIENT IS LEGALLY BLIND. CALL LIGHT WITHIN REACH. ALL BELONGINGS ARE WITHIN REACH. INSTRUCTED TO CALL FOR ASSISTANCE. PATIENT VERBALIZED UNDERSTANDING.
[2020-03-30 08:30] VITALS: BP 147/68
[2020-03-30] MEDS ORDERED: OXYMETAZOLINE HCL SPRAY 15 ML BOTTLE EN PRN (10:30)
--- NOTE | 2020-03-30 10:31 | NUR ---
DR. JOHNSON SPOKE WITH PATIENT OVER THE PHONE. SEE NEW ORDERS.
[2020-03-30 12:30] VITALS: BP 165/90
[2020-03-30] MEDS: TRAMADOL HCL 50 MG TABLET PO PRN (15:05)
--- NOTE | 2020-03-30 15:18 | NUR ---
1509 patient in [facility] Area, BPCI Letter given to Beth(Boning Room Worker) to give to patient.
[2020-03-30 16:30] VITALS: BP 173/93
[2020-03-30] MEDS: VANCOMYCIN 1GM+NS 250ML 250 ML IV SCH (16:34)
[2020-03-30] MEDS: APIXABAN 2.5 MG TABLET PO SCH (19:59)
[2020-03-30] MEDS: MONTELUKAST SODIUM 10 MG TAB PO SCH (19:59)
[2020-03-30 20:00] VITALS: BP 150/75
[2020-03-31] VITALS: BP 149/78
[2020-03-31] MEDS: INSULIN GLARGINE 100 UNITS/ML 10 ML VIAL SQ SCH ×2 (03:49→22:52)
[2020-03-31] MEDS: INSULIN HUMULIN R 100 UNIT/ML 3ML SQ SCH ×5 (03:49→22:53)
[2020-03-31] MEDS: ZOSYN 3.375GM+NS 50ML 50 ML IV SCH ×2 (03:50→14:49)
[2020-03-31 04:10] VITALS: BP 157/86
--- NOTE | 2020-03-31 05:00 | NUR ---
PT HAD BM. ABLE TO STAND UP WITH WALKER AND WALK TO CHAIR. NO SOB NOTED. ON NC 3LPM. BLIND, REQUIRES ASSISTANCE.
[2020-03-31 05:20] LABS: BASOPHILS % (AUTO) 0.1 % (0.0-5.0); HEMATOCRIT 32.6 % (42-54); LYMPHOCYTES % (AUTO) 3.9 % (21.0-51.0); MEAN CORPUSCULAR HEMOGLOBIN 30.1 pg (27.0-33.0); MEAN CORPUSCULAR HGB CONC 32.5 g/dL (32.0-36.0); MEAN CORPUSCULAR VOLUME 92.6 fL (79-99); MONOCYTES % (AUTO) 4.6 % (3.0-13.0); NEUTROPHILS % (AUTO) 90.2 % (40.0-77.0); PLATELET COUNT (AUTO) 261 K/uL (130-400); RED BLOOD CELL COUNT(AUTO) 3.52 MIL/uL (4.50-6.20); RED CELL DISTRIBUTION WIDTH 15.1 % (11.0-15.5); WHITE BLOOD COUNT (AUTO) 10.6 K/uL (4.8-10.8)
[2020-03-31 05:39] LABS: CREATININE 6.4 mg/dL (0.5-1.5); CRP QUANTITATIVE 36.2 mg/L (0.00-9.0); POTASSIUM 4.7 mmol/L (3.5-5.1)
[2020-03-31] MEDS: ZINC SULFATE 220 CAPSULE PO SCH (08:31)
[2020-03-31] MEDS: APIXABAN 2.5 MG TABLET PO SCH ×2 (08:32→20:22)
[2020-03-31] MEDS: CALCIUM CARBON 500MG CHEW TAB PO SCH ×3 (08:32→17:30)
[2020-03-31] MEDS: FAMOTIDINE 20MG TAB 20 MG TAB PO SCH (08:32)
[2020-03-31] MEDS: PREDNISONE 20 MG TABLET PO SCH ×2 (08:32→20:22)
[2020-03-31] MEDS: ASCORBIC ACID 500 MG TAB PO SCH (08:32)
[2020-03-31] MEDS: METOPROLOL SUCCINATE 50 MG TAB.SR.24H PO SCH ×2 (08:33→20:22)
[2020-03-31] MEDS: DILTIAZEM HCL 120 MG CAP.SR.24H PO SCH (08:34)
[2020-03-31 08:57] VITALS: BP 147/84
[2020-03-31 12:53] VITALS: BP 154/82
[2020-03-31] MEDS: TRAMADOL HCL 50 MG TABLET PO PRN ×2 (12:57→22:51)
[2020-03-31 16:30] VITALS: BP 145/78
[2020-03-31] MEDS: LOPERAMIDE HCL 2 MG CAP PO PRN (18:48)
[2020-03-31 20:00] VITALS: BP 194/86
[2020-03-31] MEDS: MONTELUKAST SODIUM 10 MG TAB PO SCH (20:22)
[2020-04-01] VITALS (8 sets, daily range): BP systolic 80–198; BP diastolic 46–80
[2020-04-01] MEDS: ZOSYN 3.375GM+NS 50ML 50 ML IV SCH ×2 (03:33→16:13)
[2020-04-01] MEDS: INSULIN HUMULIN R 100 UNIT/ML 3ML SQ SCH ×3 (06:42→16:54)
[2020-04-01] MEDS: ZINC SULFATE 220 CAPSULE PO SCH (08:03)
[2020-04-01] MEDS: FAMOTIDINE 20MG TAB 20 MG TAB PO SCH (08:04)
[2020-04-01] MEDS: APIXABAN 2.5 MG TABLET PO SCH ×2 (08:04→21:30)
[2020-04-01] MEDS: DILTIAZEM HCL 120 MG CAP.SR.24H PO SCH (08:04)
[2020-04-01] MEDS: ASCORBIC ACID 500 MG TAB PO SCH (08:04)
[2020-04-01] MEDS: CALCIUM CARBON 500MG CHEW TAB PO SCH ×3 (08:04→16:13)
[2020-04-01] MEDS: METOPROLOL SUCCINATE 50 MG TAB.SR.24H PO SCH ×2 (08:04→21:30)
[2020-04-01] MEDS: PREDNISONE 20 MG TABLET PO SCH ×2 (08:05→21:30)
[2020-04-01] MEDS ORDERED: SODIUM CHLORIDE 0.9% IJ SCH (09:00)
[2020-04-01] MEDS ORDERED: DESMOPRESSIN ACETATE IJ SCH (09:00)
[2020-04-01] MEDS ORDERED: COMPOUND IV REFRIGERATED 1 EACH IVSOLN MISC PRN (10:00)
--- NOTE | 2020-04-01 11:28 | NUR ---
RD FOLLOW UP Pt tolerating Dialysis, 75gm CC diet order, 1.2L Fluid Restriction. Pt reports improving energy, diarrhea likely d/t antibiotics, soft stools. Pt declines ProMod supplement. Pt with no nutritional questions. Pt also expresses concern for Dialysis post discharge and says he will speak to MD. Spoke to Pt via phone secondary to isolation protocol. Recommend continue current diet order. RD to continue to monitor. Addendum: 04/01/20 at [address] RD Amended: Links added.
[2020-04-01] MEDS: VANCOMYCIN 1GM+NS 250ML 250 ML IV SCH (12:15)
[2020-04-01] MEDS: MONTELUKAST SODIUM 10 MG TAB PO SCH (21:30)
[2020-04-01] MEDS: MINOXIDIL 2.5 MG TAB PO SCH (21:30)
[2020-04-01] MEDS: INSULIN LISPRO 100 UNIT/ML 3ML SQ SCH (21:38)
[2020-04-01] MEDS: INSULIN GLARGINE 100 UNITS/ML 10 ML VIAL SQ SCH (21:51)
[2020-04-02 03:00] VITALS: BP 171/92
[2020-04-02] MEDS: ZOSYN 3.375GM+NS 50ML 50 ML IV SCH ×2 (03:26→14:32)
--- NOTE | 2020-04-02 03:30 | NUR ---
PATIENTS RIGHT LEG BLEEDING FROM THE SCABS, CELLULITIS. PT THINKS HE MIGHT OF RUBBED HIS LEG ON THE WALKER. WALKER WAS REMOVED. AREA WAS PATTED CLEANED WITH WATER. PT WILL SHOWER.
--- NOTE | 2020-04-02 04:15 | NUR ---
PT SHOWERED. RIGHT LEG OOZING BLOOD. NON ADHERENT PADS AND GAUZE APPLIED, SECURED WITH TAPE. PT DENIES PAIN. PT SITTING ON RECLINER. CALL LIGHT WITHIN REACH.
[2020-04-02] MEDS: INSULIN LISPRO 100 UNIT/ML 3ML SQ SCH ×7 (06:22→20:48)
--- NOTE | 2020-04-02 07:48 | NUR ---
SPOKE WITH DR. HOYOS AND INFORMED HIM OF THE NEW CONSULT. HE SAID THAT HE DOES NOT TAKE CARE OF THE RIGHT LEG CELLULITIS( ORDERED FOR NEW CONSULT) BUT WILL CHECK FOR INGROWN NAIL. HE WILL SEE PATIENT.
[2020-04-02 08:30] VITALS: BP 148/75
[2020-04-02] MEDS: ZINC SULFATE 220 CAPSULE PO SCH (08:40)
[2020-04-02] MEDS: MINOXIDIL 2.5 MG TAB PO SCH ×2 (08:40→20:33)
[2020-04-02] MEDS: APIXABAN 2.5 MG TABLET PO SCH ×2 (08:40→20:33)
[2020-04-02] MEDS: ASCORBIC ACID 500 MG TAB PO SCH (08:40)
[2020-04-02] MEDS: DILTIAZEM HCL 120 MG CAP.SR.24H PO SCH (08:40)
[2020-04-02] MEDS: LOPERAMIDE HCL 2 MG CAP PO PRN ×2 (08:40→14:32)
[2020-04-02] MEDS: METOPROLOL SUCCINATE 50 MG TAB.SR.24H PO SCH ×2 (08:40→20:33)
[2020-04-02] MEDS: CALCIUM CARBON 500MG CHEW TAB PO SCH ×3 (08:40→16:45)
[2020-04-02] MEDS: FAMOTIDINE 20MG TAB 20 MG TAB PO SCH (08:40)
[2020-04-02] MEDS: PREDNISONE 20 MG TABLET PO SCH (08:42)
[2020-04-02] MEDS: TRAMADOL HCL 50 MG TABLET PO PRN (12:17)
[2020-04-02 12:36] VITALS: BP 162/90
[2020-04-02 16:00] VITALS: BP 130/63
[2020-04-02 19:00] VITALS: BP 145/79
[2020-04-02] MEDS: MONTELUKAST SODIUM 10 MG TAB PO SCH (20:33)
[2020-04-02] MEDS: INSULIN GLARGINE 100 UNITS/ML 10 ML VIAL SQ SCH (20:49)
[2020-04-02] MEDS ORDERED: PREDNISONE 20 MG TABLET PO SCH (21:00)
[2020-04-02 23:00] VITALS: BP 133/79
[2020-04-03] MEDS: ZOSYN 3.375GM+NS 50ML 50 ML IV SCH ×2 (02:43→14:57)
[2020-04-03 03:00] VITALS: BP 140/78
[2020-04-03 04:01] LABS: HEMATOCRIT 27.7 % (42-54); MEAN CORPUSCULAR HEMOGLOBIN 29.9 pg (27.0-33.0); MEAN CORPUSCULAR HGB CONC 33.2 g/dL (32.0-36.0); MEAN CORPUSCULAR VOLUME 89.9 fL (79-99); RED BLOOD CELL COUNT(AUTO) 3.08 MIL/uL (4.50-6.20); RED CELL DISTRIBUTION WIDTH 14.6 % (11.0-15.5); WHITE BLOOD COUNT (AUTO) 14.1 K/uL (4.8-10.8)
[2020-04-03 04:18] LABS: CREATININE 7.8 mg/dL (0.5-1.5); MAGNESIUM 2.4 mg/dL (1.80-2.40); POTASSIUM 4.7 mmol/L (3.5-5.1)
[2020-04-03] MEDS: INSULIN LISPRO 100 UNIT/ML 3ML SQ SCH ×7 (06:44→20:36)
[2020-04-03] MEDS: TRAMADOL HCL 50 MG TABLET PO PRN ×2 (06:46→17:39)
[2020-04-03 08:00] VITALS: BP 138/73
[2020-04-03] MEDS: MINOXIDIL 2.5 MG TAB PO SCH ×2 (08:21→20:50)
[2020-04-03] MEDS: FAMOTIDINE 20MG TAB 20 MG TAB PO SCH (08:21)
[2020-04-03] MEDS: ZINC SULFATE 220 CAPSULE PO SCH (08:21)
[2020-04-03] MEDS: APIXABAN 2.5 MG TABLET PO SCH ×2 (08:21→20:35)
[2020-04-03] MEDS: METOPROLOL SUCCINATE 50 MG TAB.SR.24H PO SCH ×2 (08:22→20:35)
[2020-04-03] MEDS: ASCORBIC ACID 500 MG TAB PO SCH (08:22)
[2020-04-03] MEDS: CALCIUM CARBON 500MG CHEW TAB PO SCH ×3 (08:22→16:41)
[2020-04-03] MEDS: DILTIAZEM HCL 120 MG CAP.SR.24H PO SCH (08:22)
[2020-04-03] MEDS: PREDNISONE 10 MG TABLET PO SCH (08:22)
--- NOTE | 2020-04-03 10:30 | NUR ---
INFORMED Keri ALDRICH RECREATION ASSISTANT THAT PATIENT CONTINUES TO COMPLAIN ABOUT SHARP PENILE PAIN. RECREATION ASSISTANT ORDERED IN AND OUT CATHETERIZATION TO COLLECT URINE. PATIENT IS ANURIC. NO URINE COLLECTED VIA STRAIGHT CATH. INFORMED RECREATION ASSISTANT. SHE ORDERED FOR US PELVIS.
--- NOTE | 2020-04-03 11:04 | NUR ---
US PELVIS CANCELLED. CT ABD/PEL ORDERED BY DR. Valdovinos
[2020-04-03 12:30] VITALS: BP 129/70
[2020-04-03 15:30] VITALS: BP 108/56
[2020-04-03] MEDS: MONTELUKAST SODIUM 10 MG TAB PO SCH (20:34)
[2020-04-03] MEDS: INSULIN GLARGINE 100 UNITS/ML 10 ML VIAL SQ SCH (20:41)
[2020-04-03 21:07] VITALS: BP 124/70
[2020-04-03 23:56] VITALS: BP 126/70
[2020-04-04] MEDS: TRAMADOL HCL 50 MG TABLET PO PRN ×2 (03:51→11:33)
[2020-04-04 04:01] VITALS: BP 126/70
[2020-04-04] MEDS: INSULIN LISPRO 100 UNIT/ML 3ML SQ SCH ×7 (07:30→21:00)
[2020-04-04 08:00] VITALS: BP 107/76
[2020-04-04] MEDS: ZINC SULFATE 220 CAPSULE PO SCH (08:48)
[2020-04-04] MEDS: MINOXIDIL 2.5 MG TAB PO SCH ×2 (08:50→21:04)
[2020-04-04] MEDS: DILTIAZEM HCL 120 MG CAP.SR.24H PO SCH (08:50)
[2020-04-04] MEDS: FAMOTIDINE 20MG TAB 20 MG TAB PO SCH (08:50)
[2020-04-04] MEDS: METOPROLOL SUCCINATE 50 MG TAB.SR.24H PO SCH ×2 (08:50→21:04)
[2020-04-04] MEDS: ASCORBIC ACID 500 MG TAB PO SCH (08:50)
[2020-04-04] MEDS: PREDNISONE 10 MG TABLET PO SCH (08:50)
[2020-04-04] MEDS: CALCIUM CARBON 500MG CHEW TAB PO SCH ×3 (08:51→17:00)
[2020-04-04] MEDS: APIXABAN 2.5 MG TABLET PO SCH ×2 (08:51→21:04)
[2020-04-04] MEDS: VANCOMYCIN 1GM+NS 250ML 250 ML IV SCH (11:34)
[2020-04-04] MEDS ORDERED: SODIUM CHLORIDE 0.9% 1000ML 1,000 ML IV ONE (11:49)
--- NOTE | 2020-04-04 11:53 | NUR ---
[facility] CONSULT [facility] RECOMMENDATIONS SUBMITTED BASED ON PICTURES IN CHART AND REPORT DUE TO COVID PROTOCOL; REPORT GIVEN TO PATIENT'S NURSE BELL. Addendum: 04/04/20 at 1156 by ALEYDA YOUNG LVN Amended: Links added.
[2020-04-04 12:09] LABS: BASOPHILS % (AUTO) 0.1 % (0.0-5.0); LYMPHOCYTES % (AUTO) 3.4 % (21.0-51.0); MEAN CORPUSCULAR HEMOGLOBIN 30.6 pg (27.0-33.0); MEAN CORPUSCULAR HGB CONC 34.8 g/dL (32.0-36.0); MEAN CORPUSCULAR VOLUME 87.9 fL (79-99); MONOCYTES % (AUTO) 3.7 % (3.0-13.0); NEUTROPHILS % (AUTO) 89.3 % (40.0-77.0); PLATELET COUNT (AUTO) 223 K/uL (130-400); RED BLOOD CELL COUNT(AUTO) 3.07 MIL/uL (4.50-6.20); RED CELL DISTRIBUTION WIDTH 14.5 % (11.0-15.5); WHITE BLOOD COUNT (AUTO) 17.5 K/uL (4.8-10.8)
[2020-04-04 12:31] LABS: ALBUMIN 2.1 g/dL (3.5-5.0); BILIRUBIN,TOTAL 1.3 mg/dL (0.2-1.0); CREATININE 6.1 mg/dL (0.5-1.5); POTASSIUM 3.6 mmol/L (3.5-5.1); TOTAL PROTEIN, SERUM 6.8 g/dL (6.0-8.3)
[2020-04-04 12:50] VITALS: BP 106/72
[2020-04-04 16:00] VITALS: BP 128/62
[2020-04-04] MEDS ORDERED: HONEY 1 APPL/ML TUBE TP SCH (19:00)
[2020-04-04 20:02] VITALS: BP 99/54
[2020-04-04] MEDS: INSULIN GLARGINE 100 UNITS/ML 10 ML VIAL SQ SCH (21:00)
[2020-04-04] MEDS: MONTELUKAST SODIUM 10 MG TAB PO SCH (21:04)
[2020-04-05 00:27] VITALS: BP 121/70
[2020-04-05 04:33] VITALS: BP 107/54
[2020-04-05 04:36] LABS: BASOPHILS % (AUTO) 0.1 % (0.0-5.0); EOSINOPHILS % (AUTO) 1.4 % (0.0-8.0); HEMATOCRIT 28.3 % (42-54); LYMPHOCYTES % (AUTO) 3.5 % (21.0-51.0); MEAN CORPUSCULAR HEMOGLOBIN 29.9 pg (27.0-33.0); MEAN CORPUSCULAR HGB CONC 32.9 g/dL (32.0-36.0); MONOCYTES % (AUTO) 5.8 % (3.0-13.0); NEUTROPHILS % (AUTO) 87.7 % (40.0-77.0); PLATELET COUNT (AUTO) 206 K/uL (130-400); RED BLOOD CELL COUNT(AUTO) 3.11 MIL/uL (4.50-6.20); RED CELL DISTRIBUTION WIDTH 14.6 % (11.0-15.5); WHITE BLOOD COUNT (AUTO) 15.5 K/uL (4.8-10.8)
[2020-04-05 04:49] LABS: CREATININE 7.5 mg/dL (0.5-1.5); POTASSIUM 4.7 mmol/L (3.5-5.1)
[2020-04-05] MEDS: INSULIN LISPRO 100 UNIT/ML 3ML SQ SCH ×7 (06:23→17:00)
[2020-04-05 08:16] VITALS: BP 124/60
[2020-04-05] MEDS: CALCIUM CARBON 500MG CHEW TAB PO SCH ×3 (09:08→17:00)
[2020-04-05] MEDS: MINOXIDIL 2.5 MG TAB PO SCH (09:09)
[2020-04-05] MEDS: METOPROLOL SUCCINATE 50 MG TAB.SR.24H PO SCH (09:09)
[2020-04-05] MEDS: FAMOTIDINE 20MG TAB 20 MG TAB PO SCH (09:09)
[2020-04-05] MEDS: ZINC SULFATE 220 CAPSULE PO SCH (09:09)
[2020-04-05] MEDS: ASCORBIC ACID 500 MG TAB PO SCH (09:09)
[2020-04-05] MEDS: APIXABAN 2.5 MG TABLET PO SCH (09:09)
[2020-04-05] MEDS: DILTIAZEM HCL 120 MG CAP.SR.24H PO SCH (09:09)
[2020-04-05] MEDS: PREDNISONE 10 MG TABLET PO SCH (09:09)
[2020-04-05 11:42] VITALS: BP 108/47
[2020-04-05] MEDS ORDERED: HONEY 1 APPL/ML TUBE TP SCH (12:30)
[2020-04-05] MEDS ORDERED: MINO2.5 PO (13:40)
[2020-04-05] MEDS ORDERED: ASCO500T20 PO (13:40)
[2020-04-05] MEDS ORDERED: PRED10B PO (13:40)
[2020-04-05] MEDS ORDERED: ZINC220C6 PO (13:40)
[2020-04-05] MEDS ORDERED: METO50TA9 PO (13:40)
[2020-04-05] MEDS ORDERED: DILT120C89 PO (13:40)
[2020-04-05] MEDS ORDERED: DOCU-275 PO (13:40)
[2020-04-05] MEDS ORDERED: APIX2.5T PO (13:40)
[2020-04-05] MEDS ORDERED: LEVO250T59 PO (13:50)
[2020-04-05] MEDS ORDERED: LEVOFLOXACIN 500 MG TABLET PO SCH (15:30)
--- NOTE | 2020-04-05 18:06 | NUR ---
DC PLAN PATIENT IN COVID UNIT. SPOKE OVER THE PHONE. SAID HE WANTS TO GO HOME. SAID HE IS ABLE TO MAKE IT TO HIS DIALYSIS APPOINTMENTS. SOMEONE WILL BE ABLE TO GIVE HIM A RIDE. CALLED MATILDE IN [facility] SAID THAT IF PATIENT HAD NO FEVER IN 4 DAYS COULD RETURN TO SAME CENTER. PRINTED VITALS FOR THE LAST 4 DAYS GOT PROGRESS NOTE SIGNED BY DR. JOHNSON SAYING THAT HE HAS NO FEVER FOR LAST 4 DAY. INFO FAXED TO DIALYSIS. GAVE PAPER WITH DIALYSIS TIME TO NURSE TO GIVE TO PATIENT. CALLED [facility] [place] SAID THEY WILL TAKE PATIENT BACK TO START SERVICES JUST NEED TO CALL THEM ONCE HE IS HOME. GAVE NUMBER TO NURSE IN CASE PATIENT FORGOT. Addendum: 04/05/20 at 1811 by KORIN KIM RN CM Amended: Links added.
--- NOTE | 2020-04-05 18:11 | NUR ---
DC PLAN NURSE CALLED SAID THAT WANTS A WHEEL CHAIR FOR PATIENT. CALLED [facility]. WENT OVER THE PATIENT MEDICAL HISTORY TO SEE IF ANY QUALIFIED FOR WHEEL CHAIR. NONE WAS LOCATED. CALLED BACK EXPLAINED THAT PATIENT DOES NOT HAVE A QUALIFYING DIAGNOSIS FOR INSURANCE TO PAY FOR DME. OFFERED PRIVATE PAY. CALLED AROUND FOUND USED CHAIR FOR 110 AT [employer]. CALLED BACK GAVE HER JAYME'S NAME AT [facility] WITH HIS PHONE NUMBER. SAID SHE WILL CALL THEM AND SEE ABOUT PURCHASING THE WHEEL CHAIR. Addendum: 04/05/20 at 1818 by KORIN KIM RN CM Amended: Links added.
--- NOTE | 2020-04-05 18:18 | NUR ---
DC PLAN ELTON FISCHER WENT OVER THE DC PLAN. ASKED TO MAKE SURE NURSE UNDERSTOOD INSTRUCTIONS REGARDING LEVAQUIN. SPOKE TO NURSE BELL EXPLAINED THAT [facility] HERBALIST WANTS PATIENT TO RECEIVE 500 PO DOSE TODAY AND THE OTHER DOSES WILL BE TAKEN AFTER DIALYSIS TREATMENT. Addendum: 04/05/20 at 1822 by KORIN KIM RN CM Amended: Links added.
== END 2020-04-05 18:40 | disposition home health service (06) | DRG 871 ==
LOC: EDH 18:05 → EDHIP 21:12 → 2DH 22:57
PROVIDERS: ADMIT Internal Medicine; ATTEND Internal Medicine
PROC: 5A1D70Z Performance of Urinary Filtration, Intermittent, Less than 6 Hours Per Day (ICD-10-PCS; 2020-03-23)
PROC: 5A1D70Z Performance of Urinary Filtration, Intermittent, Less than 6 Hours Per Day (ICD-10-PCS; 2020-03-24)
PROC: 30233K1 Transfusion of Nonautologous Frozen Plasma into Peripheral Vein, Percutaneous Approach (ICD-10-PCS; principal; 2020-03-25)
PROC: 5A1D70Z Performance of Urinary Filtration, Intermittent, Less than 6 Hours Per Day (ICD-10-PCS; 2020-03-25)
PROC: 5A1D70Z Performance of Urinary Filtration, Intermittent, Less than 6 Hours Per Day (ICD-10-PCS; 2020-03-28)
PROC: 5A1D70Z Performance of Urinary Filtration, Intermittent, Less than 6 Hours Per Day (ICD-10-PCS; 2020-03-30)
PROC: 5A1D70Z Performance of Urinary Filtration, Intermittent, Less than 6 Hours Per Day (ICD-10-PCS; 2020-04-01)
PROC: 5A1D70Z Performance of Urinary Filtration, Intermittent, Less than 6 Hours Per Day (ICD-10-PCS; 2020-04-04)
DX: A41.89 Other specified sepsis (principal); U07.1 COVID-19; N18.6 End stage renal disease; J96.01 Acute respiratory failure with hypoxia; J12.89 Other viral pneumonia; I12.0 Hypertensive chronic kidney disease with stage 5 chronic kidney disease or end stage renal disease; L03.115 Cellulitis of right lower limb; L03.116 Cellulitis of left lower limb; D68.59 Other primary thrombophilia; H33.20 Serous retinal detachment, unspecified eye; I48.92 Unspecified atrial flutter; R65.20 Severe sepsis without septic shock; E87.70 Fluid overload, unspecified; D64.9 Anemia, unspecified; E11.22 Type 2 diabetes mellitus with diabetic chronic kidney disease; E11.319 Type 2 diabetes mellitus with unspecified diabetic retinopathy without macular edema; E11.40 Type 2 diabetes mellitus with diabetic neuropathy, unspecified; E66.01 Morbid (severe) obesity due to excess calories; G47.00 Insomnia, unspecified; H54.8 Legal blindness, as defined in USA; I48.91 Unspecified atrial fibrillation; R19.7 Diarrhea, unspecified; R53.81 Other malaise; R04.0 Epistaxis; Y95 Nosocomial condition; Z68.37 Body mass index [BMI] 37.0-37.9, adult; Z88.8 Allergy status to other drugs, medicaments and biological substances; Z99.2 Dependence on renal dialysis; Z78.9 Other specified health status; Z79.01 Long term (current) use of anticoagulants; Z79.4 Long term (current) use of insulin; Z79.899 Other long term (current) drug therapy; Z87.891 Personal history of nicotine dependence; Z83.3 Family history of diabetes mellitus; Z82.3 Family history of stroke; Z82.0 Family history of epilepsy and other diseases of the nervous system; Z82.49 Family history of ischemic heart disease and other diseases of the circulatory system
CPT/HCPCS: 36415; 36430; 36600; 71045; 71275; 74176; 80048; 80053; 80061; 80074; 80076; 80202; 82550; 82728; 82803; 82948; 83036; 83605; 83615; 83735; 83874; 83880; 84100; 84145; 84484; 85025; 85027; 85378; 85610; 85651; 85730; 86140; 86850; 86900; 86901; 86927; 87040; 87324; 87486; 87493; 87581; 87633; 87635; 87798; 87804; 90935; 93005; 93970; 97039; 99291; G0378; J0360; J0696; J1200; J1650; J1815; J2405; J2543; J2597; J2920; J3370; J3490; J7030; J7050; J7070; J7512; P9017; Q9967; U0003

== ENCOUNTER 2020-04-06 10:46 | Inpatient (IN) | payer MEDICARE ==
[~2020-04-06] VITALS: Ht 177.8 cm; Wt 113.6 kg
[~2020-04-06 10:46] MED LIST changes: +APIX2.5T PO; +ASCO500T20 PO; +BACL5TAB PO; +CALC500T13 PO; +CETI10TA57 PO; +DILT120C89 PO; +DOCU-275 PO; +FOLI1TAB85 PO; +LEVO250T59 PO; -METO-391 PO; +METO50TA9 PO; +MINO2.5 PO; +MONT10TA26 PO; +PRED10B PO; +ZINC220C6 PO
[2020-04-06 11:46] LABS: BASOPHILS % (AUTO) 0.1 % (0.0-5.0); EOSINOPHILS % (AUTO) 1.3 % (0.0-8.0); HEMATOCRIT 26.9 % (42-54); LYMPHOCYTES % (AUTO) 4.8 % (21.0-51.0); MEAN CORPUSCULAR HEMOGLOBIN 30.1 pg (27.0-33.0); MEAN CORPUSCULAR HGB CONC 33.5 g/dL (32.0-36.0); MONOCYTES % (AUTO) 8.5 % (3.0-13.0); PLATELET COUNT (AUTO) 211 K/uL (130-400); RED BLOOD CELL COUNT(AUTO) 2.99 MIL/uL (4.50-6.20); RED CELL DISTRIBUTION WIDTH 14.4 % (11.0-15.5); WHITE BLOOD COUNT (AUTO) 16.6 K/uL (4.8-10.8)
[2020-04-06 11:58] LABS: ALBUMIN 2.2 g/dL (3.5-5.0); BILIRUBIN,TOTAL 1.3 mg/dL (0.2-1.0); POTASSIUM 5.3 mmol/L (3.5-5.1); TOTAL PROTEIN, SERUM 7.2 g/dL (6.0-8.3)
[2020-04-06 12:01] LABS: CREATININE 9.3 mg/dL (0.5-1.5)
[2020-04-06] MEDS ORDERED: ZOSYN 3.375GM+NS 50ML 50 ML IV ONE (13:07)
[2020-04-06] MEDS ORDERED: VANCOMYCIN 1GM+NS 250ML 250 ML IV ONE (13:08)
[2020-04-06] MEDS ORDERED: INSULIN HUMULIN R 100 UNIT/ML 3ML ONE (13:09)
[2020-04-06] MEDS ORDERED: DOCUSATE SODIUM 100 MG CAP PO PRN (14:15)
[2020-04-06] MEDS: CALCIUM CARBON 500MG CHEW TAB PO SCH (17:00)
[2020-04-06] MEDS: METOPROLOL SUCCINATE 50 MG TAB.SR.24H PO SCH (21:00)
[2020-04-06] MEDS: MINOXIDIL 2.5 MG TAB PO SCH (21:00)
[2020-04-06] MEDS: APIXABAN 2.5 MG TABLET PO SCH (21:00)
[2020-04-06] MEDS ORDERED: APIXABAN 2.5 MG TABLET PO ONE (21:30)
[2020-04-07] MEDS ORDERED: ZOSYN 3.375GM+NS 50ML 50 ML IV ONE (01:16)
[2020-04-07 05:00] VITALS: BP 107/66
[2020-04-07] MEDS: INSULIN HUMULIN R 100 UNIT/ML 3ML SQ SCH ×4 (07:37→17:26)
[2020-04-07 08:50] VITALS: BP 128/62
[2020-04-07 09:00] LABS: BASOPHILS % (AUTO) 0.1 % (0.0-5.0); EOSINOPHILS % (AUTO) 1.5 % (0.0-8.0); HEMATOCRIT 26.2 % (42-54); LYMPHOCYTES % (AUTO) 3.2 % (21.0-51.0); MEAN CORPUSCULAR HEMOGLOBIN 30.9 pg (27.0-33.0); MEAN CORPUSCULAR HGB CONC 33.6 g/dL (32.0-36.0); MEAN CORPUSCULAR VOLUME 91.9 fL (79-99); MONOCYTES % (AUTO) 6.6 % (3.0-13.0); NEUTROPHILS % (AUTO) 87.1 % (40.0-77.0); PLATELET COUNT (AUTO) 192 K/uL (130-400); RED BLOOD CELL COUNT(AUTO) 2.85 MIL/uL (4.50-6.20); RED CELL DISTRIBUTION WIDTH 14.4 % (11.0-15.5); WHITE BLOOD COUNT (AUTO) 16.1 K/uL (4.8-10.8)
[2020-04-07] MEDS ORDERED: PREDNISONE 10 MG TABLET PO SCH (09:00)
[2020-04-07] MEDS ORDERED: INSULIN GLARGINE 100 UNITS/ML 10 ML VIAL SQ ONE (09:00)
[2020-04-07 09:14] LABS: POTASSIUM 4.7 mmol/L (3.5-5.1)
[2020-04-07 09:22] LABS: CREATININE 8.1 mg/dL (0.5-1.5)
[2020-04-07] MEDS: DILTIAZEM HCL 120 MG CAP.SR.24H PO SCH (09:55)
[2020-04-07] MEDS: APIXABAN 2.5 MG TABLET PO SCH ×2 (09:55→19:50)
[2020-04-07] MEDS: ASCORBIC ACID 500 MG TAB PO SCH (09:55)
[2020-04-07] MEDS: ZINC SULFATE 220 CAPSULE PO SCH (09:57)
[2020-04-07] MEDS: METOPROLOL SUCCINATE 50 MG TAB.SR.24H PO SCH ×2 (09:57→19:50)
[2020-04-07] MEDS: MINOXIDIL 2.5 MG TAB PO SCH (09:57)
[2020-04-07] MEDS: CALCIUM CARBON 500MG CHEW TAB PO SCH ×3 (09:59→17:27)
[2020-04-07 12:50] VITALS: BP 144/53
[2020-04-07] MEDS ORDERED: ALBUMIN (HUMAN) 25% 100 ML IV ONE (13:37)
[2020-04-07] MEDS ORDERED: HEPARIN SODIUM 5000UNIT/ML 1ML VIAL IJ PRN ×2 (15:45)
[2020-04-07] MEDS ORDERED: NITROGLYCERIN 0.4 MG SL TAB SL PRN (15:45)
[2020-04-07] MEDS ORDERED: LIDOCAINE HCL-MPF 1% 2ML VIAL IJ PRN (15:45)
[2020-04-07] MEDS ORDERED: SODIUM CHLORIDE 0.9% 1000ML 1,000 ML IV PRN (15:45)
[2020-04-07] MEDS ORDERED: 0.9% SODIUM CHLORIDE 1000 ML IV BAG IV PRN (15:45)
[2020-04-07 19:02] VITALS: BP 93/41
[2020-04-07] MEDS ORDERED: MINOXIDIL 2.5 MG TAB ONE (19:42)
[2020-04-07 19:45] VITALS: BP 150/75
[2020-04-08] VITALS (7 sets, daily range): BP systolic 95–142; BP diastolic 44–81
[2020-04-08] MEDS: INSULIN HUMULIN R 100 UNIT/ML 3ML SQ SCH ×4 (06:41→20:38)
[2020-04-08] MEDS: CALCIUM CARBON 500MG CHEW TAB PO SCH ×3 (08:02→18:51)
[2020-04-08] MEDS: PREDNISONE 5 MG TABLET PO SCH (08:03)
[2020-04-08] MEDS: DILTIAZEM HCL 120 MG CAP.SR.24H PO SCH (08:03)
[2020-04-08] MEDS: APIXABAN 2.5 MG TABLET PO SCH ×2 (08:03→21:00)
[2020-04-08] MEDS: ZINC SULFATE 220 CAPSULE PO SCH (08:04)
[2020-04-08] MEDS: ASCORBIC ACID 500 MG TAB PO SCH (08:04)
[2020-04-08] MEDS: METOPROLOL SUCCINATE 50 MG TAB.SR.24H PO SCH ×2 (08:04→22:10)
[2020-04-08] MEDS: ACETAMINOPHEN 325 MG TAB PO PRN (11:47)
[2020-04-08] MEDS ORDERED: ALBUMIN (HUMAN) 25% 0 ML IV ONE (11:52)
[2020-04-08 11:59] LABS: CREATININE 7.1 mg/dL (0.5-1.5); POTASSIUM 4.1 mmol/L (3.5-5.1)
--- NOTE | 2020-04-08 12:59 | NUR ---
DC PLAN PATIENT LIVES WITH SPOUSE, [facility] [id number] [facility] [place], HOME - REFUSED SNF LAST TIME. NOW OPEN. POSITIVE FOR [facility] ON 03/24. ZOILA WILL CONTINUE TO FOLLOW. Addendum: 04/08/20 at 1300 by KORIN KIM RN CM Amended: Links added.
[2020-04-09] VITALS: BP 140/96
[2020-04-09 04:00] VITALS: BP 141/79
[2020-04-09 05:12] LABS: BASOPHILS % (AUTO) 0.4 % (0.0-5.0); EOSINOPHILS % (AUTO) 2.1 % (0.0-8.0); LYMPHOCYTES % (AUTO) 5.1 % (21.0-51.0); MEAN CORPUSCULAR HEMOGLOBIN 29.2 pg (27.0-33.0); MEAN CORPUSCULAR HGB CONC 32.1 g/dL (32.0-36.0); MEAN CORPUSCULAR VOLUME 90.9 fL (79-99); MONOCYTES % (AUTO) 8.7 % (3.0-13.0); NEUTROPHILS % (AUTO) 82.5 % (40.0-77.0); PLATELET COUNT (AUTO) 151 K/uL (130-400); RED BLOOD CELL COUNT(AUTO) 2.64 MIL/uL (4.50-6.20); RED CELL DISTRIBUTION WIDTH 14.3 % (11.0-15.5)
[2020-04-09 05:31] LABS: ALBUMIN 2.4 g/dL (3.5-5.0); BILIRUBIN,TOTAL 1.3 mg/dL (0.2-1.0); CREATININE 5.4 mg/dL (0.5-1.5); POTASSIUM 4.1 mmol/L (3.5-5.1); TOTAL PROTEIN, SERUM 6.8 g/dL (6.0-8.3)
[2020-04-09] MEDS: INSULIN HUMULIN R 100 UNIT/ML 3ML SQ SCH ×4 (06:00→22:01)
[2020-04-09 08:06] VITALS: BP 114/58
[2020-04-09] MEDS: METOPROLOL SUCCINATE 50 MG TAB.SR.24H PO SCH ×2 (08:49→21:55)
[2020-04-09] MEDS: ZINC SULFATE 220 CAPSULE PO SCH (08:49)
[2020-04-09] MEDS: DILTIAZEM HCL 120 MG CAP.SR.24H PO SCH (08:49)
[2020-04-09] MEDS: CALCIUM CARBON 500MG CHEW TAB PO SCH ×3 (08:49→17:01)
[2020-04-09] MEDS: PREDNISONE 5 MG TABLET PO SCH (08:50)
[2020-04-09] MEDS: ASCORBIC ACID 500 MG TAB PO SCH (08:50)
[2020-04-09] MEDS: APIXABAN 2.5 MG TABLET PO SCH ×2 (08:50→21:00)
[2020-04-09 11:28] VITALS: BP 141/71
--- NOTE | 2020-04-09 13:23 | NUR ---
SPOKE WITH MARIBEL SOUSA, WHO IS OVER PATIENT'S CARE. HE VERBALIZED PATIENT HAS BEEN GETTING UP TO RECLINER AND SITTING EOB WITH NURSING. Addendum: 04/09/20 at 1324 by SHIRLEY HEART PT Amended: Links added.
[2020-04-09 15:17] VITALS: BP 122/63
[2020-04-09 20:26] VITALS: BP 114/59
[2020-04-09] MEDS: ZOSYN 3.375GM+NS 50ML 50 ML IV SCH (21:55)
[2020-04-10 00:25] VITALS: BP 138/70
[2020-04-10 04:44] VITALS: BP 124/65
[2020-04-10 06:13] LABS: BASOPHILS % (AUTO) 0.3 % (0.0-5.0); EOSINOPHILS % (AUTO) 3.2 % (0.0-8.0); HEMATOCRIT 25.4 % (42-54); LYMPHOCYTES % (AUTO) 6.6 % (21.0-51.0); MEAN CORPUSCULAR HEMOGLOBIN 29.8 pg (27.0-33.0); MEAN CORPUSCULAR HGB CONC 32.3 g/dL (32.0-36.0); MEAN CORPUSCULAR VOLUME 92.4 fL (79-99); MONOCYTES % (AUTO) 8.5 % (3.0-13.0); NEUTROPHILS % (AUTO) 80.2 % (40.0-77.0); PLATELET COUNT (AUTO) 145 K/uL (130-400); RED BLOOD CELL COUNT(AUTO) 2.75 MIL/uL (4.50-6.20); RED CELL DISTRIBUTION WIDTH 14.7 % (11.0-15.5)
[2020-04-10] MEDS: INSULIN HUMULIN R 100 UNIT/ML 3ML SQ SCH ×3 (06:29→17:55)
[2020-04-10 06:34] LABS: ALBUMIN 2.5 g/dL (3.5-5.0); BILIRUBIN,TOTAL 1.3 mg/dL (0.2-1.0); CREATININE 6.9 mg/dL (0.5-1.5); POTASSIUM 4.2 mmol/L (3.5-5.1); TOTAL PROTEIN, SERUM 7.1 g/dL (6.0-8.3)
[2020-04-10 07:52] VITALS: BP 128/66
[2020-04-10] MEDS: CALCIUM CARBON 500MG CHEW TAB PO SCH ×3 (08:00→17:55)
[2020-04-10] MEDS: APIXABAN 2.5 MG TABLET PO SCH ×2 (09:00→10:17)
[2020-04-10] MEDS: ZOSYN 3.375GM+NS 50ML 50 ML IV SCH (09:00)
[2020-04-10] MEDS: PREDNISONE 5 MG TABLET PO SCH (10:15)
[2020-04-10] MEDS: ZINC SULFATE 220 CAPSULE PO SCH (10:15)
[2020-04-10] MEDS: METOPROLOL SUCCINATE 50 MG TAB.SR.24H PO SCH ×2 (10:16→21:18)
[2020-04-10] MEDS: ASCORBIC ACID 500 MG TAB PO SCH (10:16)
[2020-04-10] MEDS: DILTIAZEM HCL 120 MG CAP.SR.24H PO SCH (10:16)
[2020-04-10 11:27] VITALS: BP 133/73
[2020-04-10 16:17] VITALS: BP 133/61
[2020-04-10 20:02] VITALS: BP 149/72
[2020-04-11] VITALS (7 sets, daily range): BP systolic 110–146; BP diastolic 55–91
[2020-04-11] MEDS: ACETAMINOPHEN 325 MG TAB PO PRN (00:57)
[2020-04-11] MEDS: INSULIN HUMULIN R 100 UNIT/ML 3ML SQ SCH ×5 (00:58→21:33)
[2020-04-11 04:07] LABS: BASOPHILS % (AUTO) 0.3 % (0.0-5.0); EOSINOPHILS % (AUTO) 2.6 % (0.0-8.0); HEMATOCRIT 24.5 % (42-54); LYMPHOCYTES % (AUTO) 5.9 % (21.0-51.0); MEAN CORPUSCULAR HEMOGLOBIN 30.2 pg (27.0-33.0); MEAN CORPUSCULAR HGB CONC 32.7 g/dL (32.0-36.0); MEAN CORPUSCULAR VOLUME 92.5 fL (79-99); MONOCYTES % (AUTO) 7.4 % (3.0-13.0); NEUTROPHILS % (AUTO) 82.9 % (40.0-77.0); PLATELET COUNT (AUTO) 134 K/uL (130-400); RED BLOOD CELL COUNT(AUTO) 2.65 MIL/uL (4.50-6.20); RED CELL DISTRIBUTION WIDTH 15.1 % (11.0-15.5); WHITE BLOOD COUNT (AUTO) 11.7 K/uL (4.8-10.8)
[2020-04-11 04:36] LABS: ALBUMIN 2.5 g/dL (3.5-5.0); CRP QUANTITATIVE 27.6 mg/L (0.00-9.0); POTASSIUM 4.4 mmol/L (3.5-5.1); TOTAL PROTEIN, SERUM 7.1 g/dL (6.0-8.3)
[2020-04-11 05:01] LABS: CREATININE 8.2 mg/dL (0.5-1.5)
[2020-04-11] MEDS: APIXABAN 2.5 MG TABLET PO SCH ×2 (09:00→21:00)
[2020-04-11] MEDS: CALCIUM CARBON 500MG CHEW TAB PO SCH ×3 (09:45→17:17)
[2020-04-11] MEDS: ZINC SULFATE 220 CAPSULE PO SCH (09:45)
[2020-04-11] MEDS: DILTIAZEM HCL 120 MG CAP.SR.24H PO SCH (09:45)
[2020-04-11] MEDS: METOPROLOL SUCCINATE 50 MG TAB.SR.24H PO SCH ×2 (09:46→21:00)
[2020-04-11] MEDS: PREDNISONE 5 MG TABLET PO SCH (09:46)
[2020-04-11] MEDS: ASCORBIC ACID 500 MG TAB PO SCH (09:46)
--- NOTE | 2020-04-11 15:27 | NUR ---
DC Plan Discussed dcp with patient. Offered SNF due to slow progress with physical therapy and readmission risk. Patient declined. [facility] can get therapy through the home. [facility] has HH with [facility] and was told they can provide physical therapy. Spoke to Laurence at [facility] ph: [phone]. Per Laurence, aware patient is COVID positive and will accept patient back. [facility] will with with Dr. Phoebe Vaughan for PT orders. Notified PMD and nursing of plan. CD Addendum: 04/11/20 at 1529 by BELL ROWLAND CM Amended: Links added.
--- NOTE | 2020-04-11 21:00 | NUR ---
pt refused eliquis, states it give him nose bleeds pt denies sob or chest pain
[2020-04-12 03:04] VITALS: BP 133/81
[2020-04-12 04:45] LABS: BASOPHILS % (AUTO) 0.4 % (0.0-5.0); EOSINOPHILS % (AUTO) 3.9 % (0.0-8.0); HEMATOCRIT 25.5 % (42-54); LYMPHOCYTES % (AUTO) 6.1 % (21.0-51.0); MEAN CORPUSCULAR HEMOGLOBIN 30.8 pg (27.0-33.0); MEAN CORPUSCULAR HGB CONC 33.7 g/dL (32.0-36.0); MEAN CORPUSCULAR VOLUME 91.4 fL (79-99); MONOCYTES % (AUTO) 6.9 % (3.0-13.0); PLATELET COUNT (AUTO) 129 K/uL (130-400); RED BLOOD CELL COUNT(AUTO) 2.79 MIL/uL (4.50-6.20); RED CELL DISTRIBUTION WIDTH 15.6 % (11.0-15.5); WHITE BLOOD COUNT (AUTO) 11.9 K/uL (4.8-10.8)
[2020-04-12 05:15] LABS: CREATININE 6.3 mg/dL (0.5-1.5); CRP QUANTITATIVE 26.5 mg/L (0.00-9.0); POTASSIUM 4.2 mmol/L (3.5-5.1)
[2020-04-12] MEDS: INSULIN HUMULIN R 100 UNIT/ML 3ML SQ SCH (06:25)
[2020-04-12 08:00] VITALS: BP 130/63
[2020-04-12] MEDS: APIXABAN 2.5 MG TABLET PO SCH (09:00)
[2020-04-12] MEDS ORDERED: PREDNISONE 5 MG TABLET PO SCH (12:00)
[2020-04-12] MEDS: CALCIUM CARBON 500MG CHEW TAB PO SCH ×2 (12:00→12:02)
[2020-04-12] MEDS: DILTIAZEM HCL 120 MG CAP.SR.24H PO SCH (12:02)
[2020-04-12] MEDS: ZINC SULFATE 220 CAPSULE PO SCH (12:03)
[2020-04-12] MEDS: METOPROLOL SUCCINATE 50 MG TAB.SR.24H PO SCH (12:03)
[2020-04-12] MEDS: ASCORBIC ACID 500 MG TAB PO SCH (12:03)
[2020-04-12] MEDS: PREDNISONE 5 MG TABLET PO SCH (12:06)
[2020-04-12] MEDS ORDERED: PREDNISONE 5 MG TABLET ONE (12:06)
--- NOTE | 2020-04-12 12:10 | NUR ---
DISCHARGE INSTRUCTIONS GIVEN TO PATIENT AND OVER THE PHONE, MADE AWARE OF FOLLOW UP APPOINTMENT WITH [facility] DR. VIEIRA THAT WILL BE OVER THE PHONE April. INSTRUCTED TO CONTINUE ALL HOME MEDS ORDERED, CONTINUE HEMODIALYSIS SCHEDULED, NO NEW RX. PATIENT AT THIS TIME SITTING IN CHAIR, NO SIGNS AND SYMPTOMS OF DISTRESS, SATURATING 97% ON ROOM AIR. NO IV, TELE REMOVED. PATIENT UNABLE TO SIGN DISCHARGE PAPERWORK DUE TO BLIND BOTH EYES. WILL BE PICKING UP PATIENT.
[2020-04-20] MEDS ORDERED: ZOSYN 3.375GM+NS 50ML 50 ML IV SCH (01:00)
== END 2020-04-12 13:10 | disposition home or self-care (01) | DRG 177 ==
LOC: EDH 10:46 → EDHIP 13:26 → OBSVTOIN 13:26 → 2DH 04-07 05:14
PROVIDERS: ADMIT Internal Medicine; ATTEND Internal Medicine
PROC: 5A1D70Z Performance of Urinary Filtration, Intermittent, Less than 6 Hours Per Day (ICD-10-PCS; principal; 2020-04-06)
PROC: 5A1D70Z Performance of Urinary Filtration, Intermittent, Less than 6 Hours Per Day (ICD-10-PCS; 2020-04-07)
PROC: 5A1D70Z Performance of Urinary Filtration, Intermittent, Less than 6 Hours Per Day (ICD-10-PCS; 2020-04-08)
PROC: 5A1D70Z Performance of Urinary Filtration, Intermittent, Less than 6 Hours Per Day (ICD-10-PCS; 2020-04-11)
DX: U07.1 COVID-19 (principal); N18.6 End stage renal disease; J96.01 Acute respiratory failure with hypoxia; G72.81 Critical illness myopathy; I12.0 Hypertensive chronic kidney disease with stage 5 chronic kidney disease or end stage renal disease; L03.115 Cellulitis of right lower limb; I48.92 Unspecified atrial flutter; D68.59 Other primary thrombophilia; R19.7 Diarrhea, unspecified; H54.8 Legal blindness, as defined in USA; D50.9 Iron deficiency anemia, unspecified; E87.5 Hyperkalemia; Z99.2 Dependence on renal dialysis; E11.22 Type 2 diabetes mellitus with diabetic chronic kidney disease; R53.81 Other malaise; I95.3 Hypotension of hemodialysis; Z88.8 Allergy status to other drugs, medicaments and biological substances; E66.9 Obesity, unspecified; Z68.35 Body mass index [BMI] 35.0-35.9, adult; T38.0X5A Adverse effect of glucocorticoids and synthetic analogues, initial encounter; Y92.89 Other specified places as the place of occurrence of the external cause; Z82.0 Family history of epilepsy and other diseases of the nervous system; Z82.3 Family history of stroke; E11.51 Type 2 diabetes mellitus with diabetic peripheral angiopathy without gangrene; Y95 Nosocomial condition; Z82.49 Family history of ischemic heart disease and other diseases of the circulatory system; Z83.3 Family history of diabetes mellitus; Z87.891 Personal history of nicotine dependence
CPT/HCPCS: 36415; 70450; 71045; 80048; 80053; 82550; 82728; 82948; 83605; 83615; 84145; 84484; 85025; 85378; 85651; 86140; 87040; 87507; 90935; 93005; 97039; 99291; G0378; J1815; J2543; J3370; J7512; P9046; U0003

== ENCOUNTER → 2021-03-02 | Outpatient (CLI) | payer MEDICARE ==
[~2021-03-02] MED LIST changes: +LIDOCAINE HCL 2% JELLY 5 ML TP ONE; -MONT10TA26 PO; +MONT10TA32 PO
== END | disposition home or self-care (01) ==
LOC: WHH 09:32
PROVIDERS: ATTEND Family Medicine
DX: I87.323 Chronic venous hypertension (idiopathic) with inflammation of bilateral lower extremity (principal); E11.621 Type 2 diabetes mellitus with foot ulcer; L97.522 Non-pressure chronic ulcer of other part of left foot with fat layer exposed; L97.521 Non-pressure chronic ulcer of other part of left foot limited to breakdown of skin; S91.302A Unspecified open wound, left foot, initial encounter; E11.22 Type 2 diabetes mellitus with diabetic chronic kidney disease; I12.0 Hypertensive chronic kidney disease with stage 5 chronic kidney disease or end stage renal disease; N18.6 End stage renal disease; E11.51 Type 2 diabetes mellitus with diabetic peripheral angiopathy without gangrene; E11.40 Type 2 diabetes mellitus with diabetic neuropathy, unspecified; E11.319 Type 2 diabetes mellitus with unspecified diabetic retinopathy without macular edema; E11.21 Type 2 diabetes mellitus with diabetic nephropathy; E87.5 Hyperkalemia; D68.69 Other thrombophilia; E66.01 Morbid (severe) obesity due to excess calories; I48.91 Unspecified atrial fibrillation; I89.0 Lymphedema, not elsewhere classified; H54.8 Legal blindness, as defined in USA; Z90.49 Acquired absence of other specified parts of digestive tract; Z79.899 Other long term (current) drug therapy; Z79.01 Long term (current) use of anticoagulants; Z88.8 Allergy status to other drugs, medicaments and biological substances; Z87.891 Personal history of nicotine dependence; Z99.2 Dependence on renal dialysis; Z79.4 Long term (current) use of insulin; Z68.35 Body mass index [BMI] 35.0-35.9, adult; X58.XXXA Exposure to other specified factors, initial encounter; Y93.89 Activity, other specified; Y92.89 Other specified places as the place of occurrence of the external cause; Y99.8 Other external cause status
CPT/HCPCS: 11042

== ENCOUNTER → 2021-05-22 | Outpatient (CLI) | payer MEDICARE ==
[~2021-05-22] MED LIST changes: -LIDOCAINE HCL 2% JELLY 5 ML TP ONE; +LIDOCAINE HCL 4% LTA SOL 4 ML VIAL TP ONE
== END | disposition home or self-care (01) ==
LOC: WHH 14:18
PROVIDERS: ATTEND Family Medicine
DX: I87.323 Chronic venous hypertension (idiopathic) with inflammation of bilateral lower extremity (principal); E11.621 Type 2 diabetes mellitus with foot ulcer; L97.522 Non-pressure chronic ulcer of other part of left foot with fat layer exposed; L97.521 Non-pressure chronic ulcer of other part of left foot limited to breakdown of skin; S91.302D Unspecified open wound, left foot, subsequent encounter; E11.22 Type 2 diabetes mellitus with diabetic chronic kidney disease; I12.0 Hypertensive chronic kidney disease with stage 5 chronic kidney disease or end stage renal disease; N18.6 End stage renal disease; E11.51 Type 2 diabetes mellitus with diabetic peripheral angiopathy without gangrene; E11.40 Type 2 diabetes mellitus with diabetic neuropathy, unspecified; E11.319 Type 2 diabetes mellitus with unspecified diabetic retinopathy without macular edema; E11.21 Type 2 diabetes mellitus with diabetic nephropathy; E87.5 Hyperkalemia; D68.69 Other thrombophilia; E66.01 Morbid (severe) obesity due to excess calories; I48.91 Unspecified atrial fibrillation; I89.0 Lymphedema, not elsewhere classified; H54.8 Legal blindness, as defined in USA; Z90.49 Acquired absence of other specified parts of digestive tract; Z79.899 Other long term (current) drug therapy; Z79.01 Long term (current) use of anticoagulants; Z88.8 Allergy status to other drugs, medicaments and biological substances; Z87.891 Personal history of nicotine dependence; Z99.2 Dependence on renal dialysis; Z79.4 Long term (current) use of insulin; Z68.35 Body mass index [BMI] 35.0-35.9, adult; X58.XXXD Exposure to other specified factors, subsequent encounter
CPT/HCPCS: A4450; G0463

== ENCOUNTER → 2021-05-31 | Outpatient (CLI) | payer MEDICARE ==
[~2021-05-31] MED LIST changes: -LIDOCAINE HCL 4% LTA SOL 4 ML VIAL TP ONE
== END | disposition home or self-care (01) ==
LOC: WHH 09:16
PROVIDERS: ATTEND Podiatrist Foot & Ankle Surgery
DX: T81.89XA Other complications of procedures, not elsewhere classified, initial encounter (principal); I87.323 Chronic venous hypertension (idiopathic) with inflammation of bilateral lower extremity; E11.621 Type 2 diabetes mellitus with foot ulcer; L97.522 Non-pressure chronic ulcer of other part of left foot with fat layer exposed; S91.302D Unspecified open wound, left foot, subsequent encounter; E11.22 Type 2 diabetes mellitus with diabetic chronic kidney disease; I12.0 Hypertensive chronic kidney disease with stage 5 chronic kidney disease or end stage renal disease; N18.6 End stage renal disease; E11.51 Type 2 diabetes mellitus with diabetic peripheral angiopathy without gangrene; E11.40 Type 2 diabetes mellitus with diabetic neuropathy, unspecified; E11.319 Type 2 diabetes mellitus with unspecified diabetic retinopathy without macular edema; E11.21 Type 2 diabetes mellitus with diabetic nephropathy; E78.5 Hyperlipidemia, unspecified; E66.01 Morbid (severe) obesity due to excess calories; I48.91 Unspecified atrial fibrillation; I89.0 Lymphedema, not elsewhere classified; H54.8 Legal blindness, as defined in USA; Z90.49 Acquired absence of other specified parts of digestive tract; Z79.899 Other long term (current) drug therapy; Z79.01 Long term (current) use of anticoagulants; Z88.8 Allergy status to other drugs, medicaments and biological substances; Z87.891 Personal history of nicotine dependence; Z99.2 Dependence on renal dialysis; Z79.4 Long term (current) use of insulin; Z68.35 Body mass index [BMI] 35.0-35.9, adult; X58.XXXD Exposure to other specified factors, subsequent encounter; Y83.8 Other surgical procedures as the cause of abnormal reaction of the patient, or of later complication, without mention of misadventure at the time of the procedure; Y92.238 Other place in hospital as the place of occurrence of the external cause
CPT/HCPCS: A6209; G0463; L3260

== ENCOUNTER → 2021-06-14 | Outpatient (CLI) | payer MEDICARE ==
[~2021-06-14] MED LIST changes: +ACET-2743 PO; +DICL100G31 TP; +DOCU-270 PO; -DOCU-275 PO; +FLUT16H NASAL; +INSU100I35 SQ; +LIDOCAINE HCL 4% LTA SOL 4 ML VIAL TP ONE; +METO50TA18 PO; +TIMO5DRO35 OD
== END | disposition home or self-care (01) ==
LOC: WHH 08:43
PROVIDERS: ATTEND Podiatrist Foot & Ankle Surgery
DX: I87.323 Chronic venous hypertension (idiopathic) with inflammation of bilateral lower extremity (principal); E11.621 Type 2 diabetes mellitus with foot ulcer; L97.512 Non-pressure chronic ulcer of other part of right foot with fat layer exposed; L97.521 Non-pressure chronic ulcer of other part of left foot limited to breakdown of skin; E11.22 Type 2 diabetes mellitus with diabetic chronic kidney disease; I12.0 Hypertensive chronic kidney disease with stage 5 chronic kidney disease or end stage renal disease; N18.6 End stage renal disease; E11.51 Type 2 diabetes mellitus with diabetic peripheral angiopathy without gangrene; E11.40 Type 2 diabetes mellitus with diabetic neuropathy, unspecified; E11.319 Type 2 diabetes mellitus with unspecified diabetic retinopathy without macular edema; E11.21 Type 2 diabetes mellitus with diabetic nephropathy; E87.5 Hyperkalemia; D68.69 Other thrombophilia; E66.01 Morbid (severe) obesity due to excess calories; I48.91 Unspecified atrial fibrillation; I89.0 Lymphedema, not elsewhere classified; H54.8 Legal blindness, as defined in USA; Z90.49 Acquired absence of other specified parts of digestive tract; Z79.899 Other long term (current) drug therapy; Z79.01 Long term (current) use of anticoagulants; Z88.8 Allergy status to other drugs, medicaments and biological substances; Z87.891 Personal history of nicotine dependence; Z99.2 Dependence on renal dialysis; Z79.4 Long term (current) use of insulin; Z68.35 Body mass index [BMI] 35.0-35.9, adult; X58.XXXD Exposure to other specified factors, subsequent encounter
CPT/HCPCS: A4450; A6209; G0463

== ENCOUNTER → 2021-09-06 | Outpatient (CLI) | payer MEDICARE ==
[~2021-09-06] MED LIST changes: +LEVO250T43 PO; -LEVO250T59 PO; +MONT-39 PO; -MONT10TA32 PO
== END | disposition home or self-care (01) ==
LOC: WHH 09:40
PROVIDERS: ATTEND Podiatrist Foot & Ankle Surgery
DX: T81.89XD Other complications of procedures, not elsewhere classified, subsequent encounter (principal); E11.621 Type 2 diabetes mellitus with foot ulcer; I87.331 Chronic venous hypertension (idiopathic) with ulcer and inflammation of right lower extremity; L97.512 Non-pressure chronic ulcer of other part of right foot with fat layer exposed; I87.322 Chronic venous hypertension (idiopathic) with inflammation of left lower extremity; E11.22 Type 2 diabetes mellitus with diabetic chronic kidney disease; I12.0 Hypertensive chronic kidney disease with stage 5 chronic kidney disease or end stage renal disease; N18.6 End stage renal disease; E11.51 Type 2 diabetes mellitus with diabetic peripheral angiopathy without gangrene; E11.40 Type 2 diabetes mellitus with diabetic neuropathy, unspecified; E11.319 Type 2 diabetes mellitus with unspecified diabetic retinopathy without macular edema; E78.5 Hyperlipidemia, unspecified; I48.91 Unspecified atrial fibrillation; I89.0 Lymphedema, not elsewhere classified; H54.8 Legal blindness, as defined in USA; E66.01 Morbid (severe) obesity due to excess calories; Z68.35 Body mass index [BMI] 35.0-35.9, adult; Z90.89 Acquired absence of other organs; Z90.49 Acquired absence of other specified parts of digestive tract; Z79.899 Other long term (current) drug therapy; Z79.01 Long term (current) use of anticoagulants; Z99.2 Dependence on renal dialysis; Y83.8 Other surgical procedures as the cause of abnormal reaction of the patient, or of later complication, without mention of misadventure at the time of the procedure
CPT/HCPCS: 11042; A6209

== ENCOUNTER → 2021-09-20 | Outpatient (CLI) | payer MEDICARE | END | disposition home or self-care (01) | LOC: WHH 09:18 | PROVIDERS: ATTEND Podiatrist Foot & Ankle Surgery | DX: T81.89XD Other complications of procedures, not elsewhere classified, subsequent encounter (principal); E11.621 Type 2 diabetes mellitus with foot ulcer; I87.331 Chronic venous hypertension (idiopathic) with ulcer and inflammation of right lower extremity; L97.512 Non-pressure chronic ulcer of other part of right foot with fat layer exposed; I87.322 Chronic venous hypertension (idiopathic) with inflammation of left lower extremity; E11.22 Type 2 diabetes mellitus with diabetic chronic kidney disease; I12.0 Hypertensive chronic kidney disease with stage 5 chronic kidney disease or end stage renal disease; N18.6 End stage renal disease; E11.51 Type 2 diabetes mellitus with diabetic peripheral angiopathy without gangrene; E11.40 Type 2 diabetes mellitus with diabetic neuropathy, unspecified; E11.319 Type 2 diabetes mellitus with unspecified diabetic retinopathy without macular edema; E78.5 Hyperlipidemia, unspecified; I48.91 Unspecified atrial fibrillation; I89.0 Lymphedema, not elsewhere classified; H54.8 Legal blindness, as defined in USA; E66.01 Morbid (severe) obesity due to excess calories; Z68.35 Body mass index [BMI] 35.0-35.9, adult; Z90.89 Acquired absence of other organs; Z90.49 Acquired absence of other specified parts of digestive tract; Z79.899 Other long term (current) drug therapy; Z79.01 Long term (current) use of anticoagulants; Z99.2 Dependence on renal dialysis; Y83.8 Other surgical procedures as the cause of abnormal reaction of the patient, or of later complication, without mention of misadventure at the time of the procedure | CPT/HCPCS: 11042; A4450; A6209 ==

== ENCOUNTER → 2021-10-11 | Outpatient (CLI) | payer MEDICARE | END | disposition home or self-care (01) | LOC: WHH 09:10 | PROVIDERS: ATTEND Podiatrist Foot & Ankle Surgery | DX: T81.89XD Other complications of procedures, not elsewhere classified, subsequent encounter (principal); E11.621 Type 2 diabetes mellitus with foot ulcer; I87.331 Chronic venous hypertension (idiopathic) with ulcer and inflammation of right lower extremity; L97.512 Non-pressure chronic ulcer of other part of right foot with fat layer exposed; I87.322 Chronic venous hypertension (idiopathic) with inflammation of left lower extremity; E11.22 Type 2 diabetes mellitus with diabetic chronic kidney disease; I12.0 Hypertensive chronic kidney disease with stage 5 chronic kidney disease or end stage renal disease; N18.6 End stage renal disease; E11.51 Type 2 diabetes mellitus with diabetic peripheral angiopathy without gangrene; E11.40 Type 2 diabetes mellitus with diabetic neuropathy, unspecified; E11.319 Type 2 diabetes mellitus with unspecified diabetic retinopathy without macular edema; E78.5 Hyperlipidemia, unspecified; I48.91 Unspecified atrial fibrillation; I89.0 Lymphedema, not elsewhere classified; H54.8 Legal blindness, as defined in USA; E66.01 Morbid (severe) obesity due to excess calories; Z68.35 Body mass index [BMI] 35.0-35.9, adult; Z90.89 Acquired absence of other organs; Z90.49 Acquired absence of other specified parts of digestive tract; Z79.899 Other long term (current) drug therapy; Z79.01 Long term (current) use of anticoagulants; Z99.2 Dependence on renal dialysis; Y83.8 Other surgical procedures as the cause of abnormal reaction of the patient, or of later complication, without mention of misadventure at the time of the procedure | CPT/HCPCS: 11042; A6209 ==

== ENCOUNTER → 2021-11-01 | Outpatient (CLI) | payer MEDICARE | END | disposition home or self-care (01) | LOC: WHH 09:01 | PROVIDERS: ATTEND Podiatrist Foot & Ankle Surgery | DX: T81.89XD Other complications of procedures, not elsewhere classified, subsequent encounter (principal); E11.621 Type 2 diabetes mellitus with foot ulcer; I87.331 Chronic venous hypertension (idiopathic) with ulcer and inflammation of right lower extremity; L97.512 Non-pressure chronic ulcer of other part of right foot with fat layer exposed; I87.322 Chronic venous hypertension (idiopathic) with inflammation of left lower extremity; E11.22 Type 2 diabetes mellitus with diabetic chronic kidney disease; I12.0 Hypertensive chronic kidney disease with stage 5 chronic kidney disease or end stage renal disease; N18.6 End stage renal disease; E11.51 Type 2 diabetes mellitus with diabetic peripheral angiopathy without gangrene; E11.40 Type 2 diabetes mellitus with diabetic neuropathy, unspecified; E11.319 Type 2 diabetes mellitus with unspecified diabetic retinopathy without macular edema; E78.5 Hyperlipidemia, unspecified; I48.91 Unspecified atrial fibrillation; I89.0 Lymphedema, not elsewhere classified; H54.8 Legal blindness, as defined in USA; E66.01 Morbid (severe) obesity due to excess calories; Z68.35 Body mass index [BMI] 35.0-35.9, adult; Z90.89 Acquired absence of other organs; Z90.49 Acquired absence of other specified parts of digestive tract; Z79.899 Other long term (current) drug therapy; Z79.01 Long term (current) use of anticoagulants; Z99.2 Dependence on renal dialysis; Y83.8 Other surgical procedures as the cause of abnormal reaction of the patient, or of later complication, without mention of misadventure at the time of the procedure | CPT/HCPCS: 11042; A4450; A6209 ==

== ENCOUNTER → 2021-12-13 | Outpatient (CLI) | payer MEDICARE | END | disposition home or self-care (01) | LOC: WHH 08:39 | PROVIDERS: ATTEND Podiatrist Foot & Ankle Surgery | DX: T81.89XD Other complications of procedures, not elsewhere classified, subsequent encounter (principal); E11.621 Type 2 diabetes mellitus with foot ulcer; I87.331 Chronic venous hypertension (idiopathic) with ulcer and inflammation of right lower extremity; L97.512 Non-pressure chronic ulcer of other part of right foot with fat layer exposed; I87.322 Chronic venous hypertension (idiopathic) with inflammation of left lower extremity; E11.22 Type 2 diabetes mellitus with diabetic chronic kidney disease; I12.0 Hypertensive chronic kidney disease with stage 5 chronic kidney disease or end stage renal disease; N18.6 End stage renal disease; E11.51 Type 2 diabetes mellitus with diabetic peripheral angiopathy without gangrene; E11.40 Type 2 diabetes mellitus with diabetic neuropathy, unspecified; E11.319 Type 2 diabetes mellitus with unspecified diabetic retinopathy without macular edema; E78.5 Hyperlipidemia, unspecified; I48.91 Unspecified atrial fibrillation; I89.0 Lymphedema, not elsewhere classified; H54.8 Legal blindness, as defined in USA; E66.01 Morbid (severe) obesity due to excess calories; Z68.35 Body mass index [BMI] 35.0-35.9, adult; Z90.89 Acquired absence of other organs; Z90.49 Acquired absence of other specified parts of digestive tract; Z79.899 Other long term (current) drug therapy; Z79.01 Long term (current) use of anticoagulants; Z99.2 Dependence on renal dialysis; Y83.8 Other surgical procedures as the cause of abnormal reaction of the patient, or of later complication, without mention of misadventure at the time of the procedure | CPT/HCPCS: 11042; A4450; A6209 ==

== ENCOUNTER → 2022-01-10 | Outpatient (CLI) | payer MEDICARE | END | disposition home or self-care (01) | LOC: WHH 08:34 | PROVIDERS: ATTEND Podiatrist Foot & Ankle Surgery | DX: T81.89XD Other complications of procedures, not elsewhere classified, subsequent encounter (principal); E11.621 Type 2 diabetes mellitus with foot ulcer; I87.333 Chronic venous hypertension (idiopathic) with ulcer and inflammation of bilateral lower extremity; L97.512 Non-pressure chronic ulcer of other part of right foot with fat layer exposed; L97.521 Non-pressure chronic ulcer of other part of left foot limited to breakdown of skin; E11.22 Type 2 diabetes mellitus with diabetic chronic kidney disease; I12.0 Hypertensive chronic kidney disease with stage 5 chronic kidney disease or end stage renal disease; N18.6 End stage renal disease; E11.51 Type 2 diabetes mellitus with diabetic peripheral angiopathy without gangrene; E11.40 Type 2 diabetes mellitus with diabetic neuropathy, unspecified; E11.319 Type 2 diabetes mellitus with unspecified diabetic retinopathy without macular edema; E11.21 Type 2 diabetes mellitus with diabetic nephropathy; E78.5 Hyperlipidemia, unspecified; I48.91 Unspecified atrial fibrillation; I89.0 Lymphedema, not elsewhere classified; H54.8 Legal blindness, as defined in USA; E66.01 Morbid (severe) obesity due to excess calories; Z68.35 Body mass index [BMI] 35.0-35.9, adult; Z90.89 Acquired absence of other organs; Z90.49 Acquired absence of other specified parts of digestive tract; Z79.899 Other long term (current) drug therapy; Z79.01 Long term (current) use of anticoagulants; Z99.2 Dependence on renal dialysis; Y83.8 Other surgical procedures as the cause of abnormal reaction of the patient, or of later complication, without mention of misadventure at the time of the procedure | CPT/HCPCS: 11042; A6209; L3260 ==

== ENCOUNTER → 2022-02-21 | Outpatient (CLI) | payer MEDICARE | END | disposition home or self-care (01) | LOC: WHH 08:34 | PROVIDERS: ATTEND Podiatrist Foot & Ankle Surgery | DX: T81.89XD Other complications of procedures, not elsewhere classified, subsequent encounter (principal); E11.621 Type 2 diabetes mellitus with foot ulcer; I87.333 Chronic venous hypertension (idiopathic) with ulcer and inflammation of bilateral lower extremity; L97.512 Non-pressure chronic ulcer of other part of right foot with fat layer exposed; L97.521 Non-pressure chronic ulcer of other part of left foot limited to breakdown of skin; E11.69 Type 2 diabetes mellitus with other specified complication; M86.671 Other chronic osteomyelitis, right ankle and foot; E11.22 Type 2 diabetes mellitus with diabetic chronic kidney disease; I12.0 Hypertensive chronic kidney disease with stage 5 chronic kidney disease or end stage renal disease; N18.6 End stage renal disease; E11.51 Type 2 diabetes mellitus with diabetic peripheral angiopathy without gangrene; E11.40 Type 2 diabetes mellitus with diabetic neuropathy, unspecified; E11.319 Type 2 diabetes mellitus with unspecified diabetic retinopathy without macular edema; E11.21 Type 2 diabetes mellitus with diabetic nephropathy; E78.5 Hyperlipidemia, unspecified; I48.91 Unspecified atrial fibrillation; I89.0 Lymphedema, not elsewhere classified; H54.8 Legal blindness, as defined in USA; E66.01 Morbid (severe) obesity due to excess calories; Z68.35 Body mass index [BMI] 35.0-35.9, adult; Z90.89 Acquired absence of other organs; Z90.49 Acquired absence of other specified parts of digestive tract; Z79.899 Other long term (current) drug therapy; Z79.01 Long term (current) use of anticoagulants; Z99.2 Dependence on renal dialysis; Y83.8 Other surgical procedures as the cause of abnormal reaction of the patient, or of later complication, without mention of misadventure at the time of the procedure | CPT/HCPCS: 11042; A4450; A6209 ==

== ENCOUNTER → 2022-03-14 | Outpatient (CLI) | payer MEDICARE | END | disposition home or self-care (01) | LOC: WHH 09:02 | PROVIDERS: ATTEND Podiatrist Foot & Ankle Surgery | DX: T81.89XD Other complications of procedures, not elsewhere classified, subsequent encounter (principal); I87.331 Chronic venous hypertension (idiopathic) with ulcer and inflammation of right lower extremity; E11.621 Type 2 diabetes mellitus with foot ulcer; L97.512 Non-pressure chronic ulcer of other part of right foot with fat layer exposed; L03.115 Cellulitis of right lower limb; I87.322 Chronic venous hypertension (idiopathic) with inflammation of left lower extremity; E11.51 Type 2 diabetes mellitus with diabetic peripheral angiopathy without gangrene; E11.40 Type 2 diabetes mellitus with diabetic neuropathy, unspecified; E11.319 Type 2 diabetes mellitus with unspecified diabetic retinopathy without macular edema; E11.22 Type 2 diabetes mellitus with diabetic chronic kidney disease; I12.0 Hypertensive chronic kidney disease with stage 5 chronic kidney disease or end stage renal disease; N18.6 End stage renal disease; E11.21 Type 2 diabetes mellitus with diabetic nephropathy; E11.69 Type 2 diabetes mellitus with other specified complication; M86.671 Other chronic osteomyelitis, right ankle and foot; I48.91 Unspecified atrial fibrillation; E78.5 Hyperlipidemia, unspecified; I89.0 Lymphedema, not elsewhere classified; H54.8 Legal blindness, as defined in USA; E66.01 Morbid (severe) obesity due to excess calories; Z68.35 Body mass index [BMI] 35.0-35.9, adult; Z86.16 Personal history of COVID-19; Z99.2 Dependence on renal dialysis; Z79.899 Other long term (current) drug therapy; Z79.01 Long term (current) use of anticoagulants; Y83.8 Other surgical procedures as the cause of abnormal reaction of the patient, or of later complication, without mention of misadventure at the time of the procedure | CPT/HCPCS: 11042; A6209 ==

== ENCOUNTER → 2022-03-20 | Outpatient (CLI) | payer MEDICARE ==
[~2022-03-20] MED LIST changes: -LIDOCAINE HCL 4% LTA SOL 4 ML VIAL TP ONE
== END | disposition home or self-care (01) ==
LOC: RAH 14:27
PROVIDERS: ATTEND Internal Medicine Nephrology
DX: M79.671 Pain in right foot (principal); M86.8X7 Other osteomyelitis, ankle and foot
CPT/HCPCS: 73718

== ENCOUNTER → 2022-04-04 | Outpatient (CLI) | payer MEDICARE | END | disposition home or self-care (01) | LOC: WHH 08:57 | PROVIDERS: ATTEND Podiatrist Foot & Ankle Surgery | DX: T81.89XD Other complications of procedures, not elsewhere classified, subsequent encounter (principal); I87.331 Chronic venous hypertension (idiopathic) with ulcer and inflammation of right lower extremity; E11.621 Type 2 diabetes mellitus with foot ulcer; L97.512 Non-pressure chronic ulcer of other part of right foot with fat layer exposed; L03.115 Cellulitis of right lower limb; I87.322 Chronic venous hypertension (idiopathic) with inflammation of left lower extremity; E11.51 Type 2 diabetes mellitus with diabetic peripheral angiopathy without gangrene; E11.40 Type 2 diabetes mellitus with diabetic neuropathy, unspecified; E11.319 Type 2 diabetes mellitus with unspecified diabetic retinopathy without macular edema; E11.22 Type 2 diabetes mellitus with diabetic chronic kidney disease; I12.0 Hypertensive chronic kidney disease with stage 5 chronic kidney disease or end stage renal disease; N18.6 End stage renal disease; E11.21 Type 2 diabetes mellitus with diabetic nephropathy; E11.69 Type 2 diabetes mellitus with other specified complication; M86.671 Other chronic osteomyelitis, right ankle and foot; I48.91 Unspecified atrial fibrillation; E78.5 Hyperlipidemia, unspecified; I89.0 Lymphedema, not elsewhere classified; H54.8 Legal blindness, as defined in USA; E66.01 Morbid (severe) obesity due to excess calories; Z68.35 Body mass index [BMI] 35.0-35.9, adult; Z86.16 Personal history of COVID-19; Z99.2 Dependence on renal dialysis; Z79.899 Other long term (current) drug therapy; Z79.01 Long term (current) use of anticoagulants; Y83.8 Other surgical procedures as the cause of abnormal reaction of the patient, or of later complication, without mention of misadventure at the time of the procedure | CPT/HCPCS: 11042; A4450; A6209 ==

== ENCOUNTER → 2022-05-30 | Outpatient (CLI) | payer MEDICARE ==
[~2022-05-30] MED LIST changes: -LEVO250T43 PO; +LEVO250T75 PO; +LIDOCAINE HCL 4% LTA SOL 4 ML VIAL TP ONE
== END | disposition home or self-care (01) ==
LOC: WHH 08:39
PROVIDERS: ATTEND Podiatrist Foot & Ankle Surgery
DX: T81.89XD Other complications of procedures, not elsewhere classified, subsequent encounter (principal); I87.331 Chronic venous hypertension (idiopathic) with ulcer and inflammation of right lower extremity; E11.621 Type 2 diabetes mellitus with foot ulcer; L97.512 Non-pressure chronic ulcer of other part of right foot with fat layer exposed; L03.115 Cellulitis of right lower limb; I87.322 Chronic venous hypertension (idiopathic) with inflammation of left lower extremity; E11.51 Type 2 diabetes mellitus with diabetic peripheral angiopathy without gangrene; E11.40 Type 2 diabetes mellitus with diabetic neuropathy, unspecified; E11.319 Type 2 diabetes mellitus with unspecified diabetic retinopathy without macular edema; E11.22 Type 2 diabetes mellitus with diabetic chronic kidney disease; I12.0 Hypertensive chronic kidney disease with stage 5 chronic kidney disease or end stage renal disease; N18.6 End stage renal disease; E11.21 Type 2 diabetes mellitus with diabetic nephropathy; E11.69 Type 2 diabetes mellitus with other specified complication; M86.671 Other chronic osteomyelitis, right ankle and foot; I48.91 Unspecified atrial fibrillation; E78.5 Hyperlipidemia, unspecified; I89.0 Lymphedema, not elsewhere classified; H54.8 Legal blindness, as defined in USA; E66.01 Morbid (severe) obesity due to excess calories; Z68.35 Body mass index [BMI] 35.0-35.9, adult; Z86.16 Personal history of COVID-19; Z99.2 Dependence on renal dialysis; Z79.899 Other long term (current) drug therapy; Z79.01 Long term (current) use of anticoagulants; Y83.8 Other surgical procedures as the cause of abnormal reaction of the patient, or of later complication, without mention of misadventure at the time of the procedure
CPT/HCPCS: 11042; A6209; A4450

== ENCOUNTER → 2022-06-27 | Outpatient (CLI) | payer MEDICARE ==
[~2022-06-27] MED LIST changes: -LIDOCAINE HCL 4% LTA SOL 4 ML VIAL TP ONE
== END | disposition home or self-care (01) ==
LOC: WHH 08:40
PROVIDERS: ATTEND Podiatrist Foot & Ankle Surgery
DX: T81.89XD Other complications of procedures, not elsewhere classified, subsequent encounter (principal); I87.323 Chronic venous hypertension (idiopathic) with inflammation of bilateral lower extremity; E11.621 Type 2 diabetes mellitus with foot ulcer; L97.511 Non-pressure chronic ulcer of other part of right foot limited to breakdown of skin; E11.622 Type 2 diabetes mellitus with other skin ulcer; L97.221 Non-pressure chronic ulcer of left calf limited to breakdown of skin; L97.211 Non-pressure chronic ulcer of right calf limited to breakdown of skin; L03.115 Cellulitis of right lower limb; E11.21 Type 2 diabetes mellitus with diabetic nephropathy; E11.40 Type 2 diabetes mellitus with diabetic neuropathy, unspecified; E11.51 Type 2 diabetes mellitus with diabetic peripheral angiopathy without gangrene; E11.319 Type 2 diabetes mellitus with unspecified diabetic retinopathy without macular edema; E11.22 Type 2 diabetes mellitus with diabetic chronic kidney disease; I12.0 Hypertensive chronic kidney disease with stage 5 chronic kidney disease or end stage renal disease; N18.6 End stage renal disease; E11.69 Type 2 diabetes mellitus with other specified complication; M86.671 Other chronic osteomyelitis, right ankle and foot; I48.91 Unspecified atrial fibrillation; E78.5 Hyperlipidemia, unspecified; I89.0 Lymphedema, not elsewhere classified; H54.8 Legal blindness, as defined in USA; E66.01 Morbid (severe) obesity due to excess calories; Z68.35 Body mass index [BMI] 35.0-35.9, adult; Z86.16 Personal history of COVID-19; Z99.2 Dependence on renal dialysis; Z79.899 Other long term (current) drug therapy; Z79.01 Long term (current) use of anticoagulants; Y83.8 Other surgical procedures as the cause of abnormal reaction of the patient, or of later complication, without mention of misadventure at the time of the procedure
CPT/HCPCS: G0463; A6209; A4649; A4450

== ENCOUNTER → 2022-07-18 | Outpatient (CLI) | payer MEDICARE ==
[~2022-07-18] MED LIST changes: -APIX2.5T PO; -ASCO500T20 PO; -BACL5TAB PO; -CALC500T13 PO; -CETI10TA57 PO; -CLARATIN PO; -DICL100G31 TP; -DILT120C89 PO; -DOCU-270 PO; -FOLI1TAB85 PO; -GUAI-904 PO; -INSU100I35 SQ; -LEVO250T75 PO; -LEVO500T2 PO; -METO50TA18 PO; -METO50TA9 PO; -MINO2.5 PO; -MONT-39 PO; -PRED10B PO; -TIMO5DRO27 OS; -TIMO5DRO35 OD; -ZINC220C6 PO
== END | disposition home or self-care (01) ==
LOC: WHH 08:52
PROVIDERS: ATTEND Podiatrist Foot & Ankle Surgery
DX: T81.89XD Other complications of procedures, not elsewhere classified, subsequent encounter (principal); I87.323 Chronic venous hypertension (idiopathic) with inflammation of bilateral lower extremity; E11.621 Type 2 diabetes mellitus with foot ulcer; L97.511 Non-pressure chronic ulcer of other part of right foot limited to breakdown of skin; E11.622 Type 2 diabetes mellitus with other skin ulcer; L97.221 Non-pressure chronic ulcer of left calf limited to breakdown of skin; L97.211 Non-pressure chronic ulcer of right calf limited to breakdown of skin; L03.115 Cellulitis of right lower limb; E11.21 Type 2 diabetes mellitus with diabetic nephropathy; E11.40 Type 2 diabetes mellitus with diabetic neuropathy, unspecified; E11.51 Type 2 diabetes mellitus with diabetic peripheral angiopathy without gangrene; E11.319 Type 2 diabetes mellitus with unspecified diabetic retinopathy without macular edema; E11.22 Type 2 diabetes mellitus with diabetic chronic kidney disease; I12.0 Hypertensive chronic kidney disease with stage 5 chronic kidney disease or end stage renal disease; N18.6 End stage renal disease; E11.69 Type 2 diabetes mellitus with other specified complication; M86.671 Other chronic osteomyelitis, right ankle and foot; I48.91 Unspecified atrial fibrillation; E78.5 Hyperlipidemia, unspecified; I89.0 Lymphedema, not elsewhere classified; H54.8 Legal blindness, as defined in USA; E66.01 Morbid (severe) obesity due to excess calories; Z68.35 Body mass index [BMI] 35.0-35.9, adult; Z86.16 Personal history of COVID-19; Z99.2 Dependence on renal dialysis; Z87.891 Personal history of nicotine dependence; Z79.899 Other long term (current) drug therapy; Z79.01 Long term (current) use of anticoagulants; Y83.8 Other surgical procedures as the cause of abnormal reaction of the patient, or of later complication, without mention of misadventure at the time of the procedure
CPT/HCPCS: 97597; A6209